=== PATIENT | female | born 1955 | race Two or more races ===

== ENCOUNTER 2020-08-30 08:55 | Outpatient (REF) | payer OTHER, SELFPAY ==
--- NOTE | 2020-08-30 09:22 | XR_ITS ---
EXAMINATION: XR ANKLE, RIGHT CLINICAL INFORMATION: Follow-up fibular fracture. COMPARISON: Radiographs dated 08/12/2020. TECHNIQUE: AP, lateral, and mortise views of the right ankle. FINDINGS: Bone mineralization is normal. The ankle mortise is intact. There is stable alignment of a minimally displaced, oblique distal right fibular fracture. There is a new adjacent periosteal callus formation. No dislocation is seen. There is a right ankle joint effusion. Boehler's angle is normal. There are small posterior and moderate plantar calcaneal spurs. There is mild degenerative change of the dorsal midfoot. There is mild soft tissue swelling adjacent to the lateral malleolus. No soft tissue gas or foreign body is seen. IMPRESSION: There is stable alignment of a mildly displaced oblique distal right fibular fracture. There is new periosteal callus formation.
== END 2020-08-30 08:56 | disposition home or self-care (01) ==
LOC: HO.XRAY 08:55
PROVIDERS: PCP Internal Medicine; Referring Provider Internal Medicine; Visit Provider Orthopaedic Surgery
DX: S82.61XD Displaced fracture of lateral malleolus of right fibula, subsequent encounter for closed fracture with routine healing (principal)
CPT/HCPCS: 73610; 99213

== ENCOUNTER 2020-09-02 09:37 | Outpatient (REF) | payer OTHER, SELFPAY ==
[2020-09-02 10:15] LABS: MANUAL DIFF FLAG NO
[2020-09-02 10:22] LABS: Basophils Percent Auto 0.5 % (0-2); Eosinophils Absolute Auto 0.1 X10*3/uL (0.0-0.4); Eosinophils Percent Auto 2.1 % (0-4); Hematocrit 40.2 % (37-47); Hemoglobin 12.9 g/dl (12.0-16.0); Imm Gran Abs Auto 0.01 X10*3/uL (0.00-0.03); Imm Gran Pct Auto 0.2 % (0.0-0.4); Lymphocytes Absolute Auto 2.1 X10*3/uL (1.2-4.9); Lymphocytes Percent Auto 36.6 % (20-40); Mean Corpuscular HGB Conc 32.1 g/dl (31.0-35.0); Mean Corpuscular Hemoglobin 28.7 pg (27.0-33.0); Mean Corpuscular Volume 89.3 fL (80-98); Monocytes Absolute Auto 0.4 X10*3/uL (0.1-1.2); Monocytes Percent Auto 7.6 % (2-11); Neutrophils Absolute Auto 3.1 X10*3/uL (2.0-8.3); Platelet Count 237 X10*3/uL (160-400); Red Cell Distribution Width 13.6 % (11.0-16.0); White Blood Count 5.8 X10*3/uL (4.8-10.8)
[2020-09-02 11:05] LABS: TSH reflex Free T4 2.34 mIU/mL (0.32-4.0)
== END 2020-09-02 09:38 | disposition home or self-care (01) ==
LOC: HO.LAB 09:37
PROVIDERS: PCP Internal Medicine; Visit Provider Internal Medicine
DX: E66.09 Other obesity due to excess calories (principal)
CPT/HCPCS: 36415; 84443; 85025

== ENCOUNTER 2020-11-12 10:52 | Outpatient (REF) | payer OTHER, SELFPAY | END 2020-11-12 10:53 | disposition home or self-care (01) | LOC: HO.LAB 10:52 | PROVIDERS: Visit Provider Internal Medicine | DX: Z20.828 Contact with and (suspected) exposure to other viral communicable diseases (principal) | CPT/HCPCS: C9803; U0003 ==

== ENCOUNTER 2020-11-26 11:28 | Outpatient (REF) | payer OTHER, SELFPAY | END 2020-11-26 11:29 | disposition home or self-care (01) | LOC: HO.LAB 11:28 | PROVIDERS: PCP Internal Medicine; Visit Provider Internal Medicine | DX: Z20.822 Contact with and (suspected) exposure to COVID-19 (principal) | CPT/HCPCS: 36415; C9803; U0003 ==

== ENCOUNTER 2021-02-20 09:37 | Outpatient (REF) | payer OTHER, SELFPAY ==
--- NOTE | ~2021-02-20 | MM_ITS ---
EXAMINATION: MM SCREENING DIGITAL BREAST TOMOSYNTHESIS, BILATERAL CLINICAL INFORMATION: Screening. Asymptomatic. The lifetime risk of breast cancer based on the Tyrer-Cuzick Model is 4.4%. COMPARISON: Mammography: October 17, 2019 and studies dating back to February 08, 2014 TECHNIQUE: Digital breast tomosynthesis is performed in both the craniocaudal and mediolateral oblique views along with computer-aided detection (CAD). Synthesized 2D images are generated from the tomosynthesis. FINDINGS: The breasts are heterogeneously dense, which may obscure small masses (ACR BI-RADS breast composition Category c). There are no significant masses, abnormal calcifications, or other abnormalities. MM/MM tomosynthesis screening BI IMPRESSION: There are no significant changes from prior study. ASSESSMENT: BI-RADS 1: Negative RECOMMENDATION: Routine annual mammography screening. This patient's information was entered into a reminder system with a target due date for their next mammogram.
== END 2021-02-20 09:38 | disposition home or self-care (01) ==
LOC: HO.MAMMO 09:37
PROVIDERS: Visit Provider Internal Medicine
DX: Z12.31 Encounter for screening mammogram for malignant neoplasm of breast (principal)
CPT/HCPCS: 77063; 77067

== ENCOUNTER 2021-05-27 08:19 | Outpatient (REF) | payer OTHER, SELFPAY ==
[2021-05-27 09:09] LABS: MANUAL DIFF FLAG NO
[2021-05-27 09:13] LABS: Basophils Percent Auto 0.4 % (0-2); Eosinophils Absolute Auto 0.1 X10*3/uL (0.0-0.4); Eosinophils Percent Auto 2.3 % (0-4); Hematocrit 37.6 % (37-47); Hemoglobin 12.3 g/dl (12.0-16.0); Imm Gran Abs Auto 0.01 X10*3/uL (0.00-0.03); Imm Gran Pct Auto 0.2 % (0.0-0.4); Lymphocytes Absolute Auto 2.4 X10*3/uL (1.2-4.9); Lymphocytes Percent Auto 49.6 % (20-40); Mean Corpuscular HGB Conc 32.7 g/dl (31.0-35.0); Mean Corpuscular Hemoglobin 28.9 pg (27.0-33.0); Mean Corpuscular Volume 88.3 fL (80-98); Mean Platelet Volume 12.4 fL (9.4-12.3); Monocytes Absolute Auto 0.4 X10*3/uL (0.1-1.2); Monocytes Percent Auto 7.3 % (2-11); Neutrophils Absolute Auto 1.9 X10*3/uL (2.0-8.3); Neutrophils Percent Auto 40.2 % (45-73); Platelet Count 206 X10*3/uL (160-400); Red Blood Count 4.26 X10*6/uL (4.20-5.50); Red Cell Distribution Width 13.6 % (11.0-16.0); White Blood Count 4.8 X10*3/uL (4.8-10.8)
[2021-05-27 09:33] LABS: Alanine Aminotransferase 70 U/L (0-31); Alkaline Phosphatase 77 U/L (39-117); Anion Gap 13 (12-20); Aspartate Amino Transferase 63 U/L (5-31); Bilirubin Total 0.4 mg/dL (0.0-1.0); Blood Urea Nitrogen 10 mg/dL (9-16); Calcium 9.2 mg/dL (8.4-10.2); Carbon Dioxide 24 mmol/L (22-29); Chloride 104 mmol/L (96-108); Cholesterol 155 mg/dL; Estimated Glomerular Filt Rate > 60; Glucose Fasting 305 mg/dL (60-99); HDL Cholesterol 49 mg/dL; Potassium 4.2 mmol/L (3.3-5.1); Sodium 137 mmol/L (135-145); Total Protein 7.3 g/dL (6.5-8.0)
[2021-05-27 09:34] LABS: LDL Cholesterol Calculated 79 mg/dl; Triglycerides 137 mg/dL
[2021-05-27 10:47] LABS: Creatinine Urine 48.94 mg/dL; Microalbum/Creatinine Ratio Ur 81.7 ug/mg cr
== END 2021-05-27 08:20 | disposition home or self-care (01) ==
LOC: HO.LAB 08:19
PROVIDERS: PCP Internal Medicine; Visit Provider Internal Medicine
DX: E11.65 Type 2 diabetes mellitus with hyperglycemia (principal); D64.9 Anemia, unspecified; K21.9 Gastro-esophageal reflux disease without esophagitis; E78.5 Hyperlipidemia, unspecified
CPT/HCPCS: 36415; 80053; 80061; 82043; 85025

== ENCOUNTER 2021-12-10 08:59 | Outpatient (REF) | payer OTHER, SELFPAY ==
[2021-12-10 11:04] LABS: Alanine Aminotransferase 75 U/L (0-31); Albumin Level 3.9 g/dL (3.5-5.0); Alkaline Phosphatase 83 U/L (39-117); Anion Gap 12 (12-20); Aspartate Amino Transferase 67 U/L (5-31); Bilirubin Total 0.4 mg/dL (0.0-1.0); Blood Urea Nitrogen 17 mg/dL (9-16); Calcium 9.3 mg/dL (8.4-10.2); Carbon Dioxide 24 mmol/L (22-29); Chloride 107 mmol/L (96-108); Cholesterol 153 mg/dL; Estimated Glomerular Filt Rate > 60; Glucose Fasting 139 mg/dL (60-99); HDL Cholesterol 47 mg/dL; LDL Cholesterol Calculated 86 mg/dl; Potassium 4.3 mmol/L (3.3-5.1); Sodium 139 mmol/L (135-145); Total Protein 7.4 g/dL (6.5-8.0); Triglycerides 104 mg/dL
[2021-12-10 11:28] LABS: Creatinine Urine 78.41 mg/dL; Microalbum/Creatinine Ratio Ur 29.3 ug/mg cr
[2021-12-15 16:17] LABS: Vitamin D 25-OH, D2 <4 ng/mL; Vitamin D 25-OH, D3 25 ng/mL; Vitamin D 25-OH, Total 25 ng/mL (30-100)
== END 2021-12-10 09:00 | disposition home or self-care (01) ==
LOC: HO.LAB 08:59
PROVIDERS: PCP Internal Medicine; Visit Provider Internal Medicine
DX: E11.65 Type 2 diabetes mellitus with hyperglycemia (principal); E78.5 Hyperlipidemia, unspecified; E55.9 Vitamin D deficiency, unspecified
CPT/HCPCS: 36415; 80053; 80061; 82043; 82306

== ENCOUNTER 2022-02-26 09:45 | Outpatient (REF) | payer OTHER, SELFPAY ==
--- NOTE | ~2022-02-26 | MM_ITS ---
EXAMINATION: MM SCREENING DIGITAL BREAST TOMOSYNTHESIS, BILATERAL CLINICAL INFORMATION: Screening. Asymptomatic. The lifetime risk of breast cancer based on the Tyrer-Cuzick Model is 4.5%. COMPARISON: Mammography: February 20, 2021 and studies dating back to August 26, 2010 TECHNIQUE: Digital breast tomosynthesis is performed in both the craniocaudal and mediolateral oblique views along with computer-aided detection (CAD). Synthesized 2D images are generated from the tomosynthesis. FINDINGS: The breasts are heterogeneously dense, which may obscure small masses (ACR BI-RADS breast composition Category c). There are no significant masses, abnormal calcifications, or other abnormalities. Right breast intramammary lymph nodes present. MM/MM tomosynthesis screening BI IMPRESSION: There are no significant changes from prior study. ASSESSMENT: BI-RADS 1: Negative RECOMMENDATION: Routine annual mammography screening. This patient's information was entered into a reminder system with a target due date for their next mammogram.
== END 2022-02-26 09:46 | disposition home or self-care (01) ==
LOC: HO.MAMMO 09:45
PROVIDERS: PCP Internal Medicine; Visit Provider Internal Medicine
DX: Z12.31 Encounter for screening mammogram for malignant neoplasm of breast (principal)
CPT/HCPCS: 77063; 77067

== ENCOUNTER 2022-06-05 07:31 | Outpatient (REF) | payer MEDICARE, MEDICAID, SELFPAY ==
[2022-06-05 07:59] LABS: MANUAL DIFF FLAG NO
[2022-06-05 08:14] LABS: Basophils Percent Auto 0.4 % (0-2); Eosinophils Absolute Auto 0.1 X10*3/uL (0.0-0.4); Eosinophils Percent Auto 2.1 % (0-4); Hematocrit 38.5 % (37.0-47.0); Hemoglobin 12.4 g/dl (12.0-16.0); Imm Gran Abs Auto 0.02 X10*3/uL (0.00-0.03); Imm Gran Pct Auto 0.4 % (0.0-0.4); Lymphocytes Absolute Auto 2.6 X10*3/uL (1.2-4.9); Lymphocytes Percent Auto 48.9 % (20-40); Mean Corpuscular HGB Conc 32.2 g/dl (31.0-35.0); Mean Corpuscular Hemoglobin 28.1 pg (27.0-33.0); Mean Corpuscular Volume 87.3 fL (80.0-98.0); Mean Platelet Volume 11.6 fL (9.4-12.3); Monocytes Absolute Auto 0.4 X10*3/uL (0.1-1.2); Monocytes Percent Auto 6.8 % (2-11); Neutrophils Absolute Auto 2.2 x10*3/uL (2.0-8.3); Neutrophils Percent Auto 41.4 % (45-73); Platelet Count 250 X10*3/uL (160-400); Red Blood Count 4.41 X10*6/uL (4.20-5.50); Red Cell Distribution Width 13.2 % (11.0-16.0); White Blood Count 5.3 X10*3/uL (4.8-10.8)
[2022-06-05 08:53] LABS: Alanine Aminotransferase 61 U/L (0-31); Albumin Level 4.1 g/dL (3.5-5.0); Alkaline Phosphatase 72 U/L (39-117); Anion Gap 12 (12-20); Aspartate Amino Transferase 62 U/L (5-31); Bilirubin Total 0.5 mg/dL (0.0-1.0); Blood Urea Nitrogen 14 mg/dL (9-16); Calcium 9.2 mg/dL (8.4-10.2); Carbon Dioxide 23 mmol/L (22-29); Chloride 108 mmol/L (96-108); Cholesterol 139 mg/dL; Estimated Glomerular Filt Rate > 60; Glucose Fasting 162 mg/dL (60-99); HDL Cholesterol 43 mg/dL; LDL Cholesterol Calculated 75 mg/dl; Sodium 139 mmol/L (135-145); Total Protein 7.5 g/dL (6.5-8.0); Triglycerides 105 mg/dL
[2022-06-05 09:14] LABS: Vitamin D 25-OH Total 34.6 ng/mL (>30)
[2022-06-05 09:59] LABS: Creatinine Urine 75.82 mg/dL; Microalbum/Creatinine Ratio Ur 73.8 ug/mg cr
== END 2022-06-05 07:32 | disposition home or self-care (01) ==
LOC: HO.LAB 07:31
PROVIDERS: PCP Internal Medicine; Visit Provider Internal Medicine
DX: E11.65 Type 2 diabetes mellitus with hyperglycemia (principal); E78.5 Hyperlipidemia, unspecified; E55.9 Vitamin D deficiency, unspecified; K21.9 Gastro-esophageal reflux disease without esophagitis
CPT/HCPCS: 36415; 80053; 80061; 82043; 82306; 85025

== ENCOUNTER 2022-06-25 09:31 | Outpatient (REF) | payer OTHER, SELFPAY ==
--- NOTE | ~2022-06-25 | XR_ITS ---
EXAMINATION: XR FOOT, LEFT CLINICAL INFORMATION: Pain COMPARISON: None TECHNIQUE: AP, lateral, and oblique views of the left foot. FINDINGS: The bones and soft tissues are normal. No fracture. Alignment is anatomic. Joint spaces are maintained. There is a small calcaneal heel enthesophyte. XR/XR foot LT 2V IMPRESSION: Small calcaneal heel enthesophyte. Otherwise unremarkable left foot exam
== END 2022-06-25 09:32 | disposition home or self-care (01) ==
LOC: HO.XRAY 09:31
PROVIDERS: PCP Internal Medicine; Visit Provider Internal Medicine
DX: M79.672 Pain in left foot (principal)
CPT/HCPCS: 73620

== ENCOUNTER 2022-10-09 07:59 | Outpatient (REF) | payer OTHER, SELFPAY ==
[2022-10-09 09:01] LABS: Creatinine Urine 134.94 mg/dL; Microalbum/Creatinine Ratio Ur 22.2 ug/mg cr
[2022-10-09 11:30] LABS: Alanine Aminotransferase 66 U/L (0-31); Albumin Level 4.1 g/dL (3.5-5.0); Alkaline Phosphatase 77 U/L (39-117); Anion Gap 13 (12-20); Aspartate Amino Transferase 65 U/L (5-31); Bilirubin Total 0.5 mg/dL (0.0-1.0); Blood Urea Nitrogen 14 mg/dL (9-16); Calcium 9.4 mg/dL (8.4-10.2); Carbon Dioxide 24 mmol/L (22-29); Chloride 109 mmol/L (96-108); Cholesterol 136 mg/dL; Estimated Glomerular Filt Rate > 60; Glucose Fasting 86 mg/dL (60-99); HDL Cholesterol 40 mg/dL; LDL Cholesterol Calculated 72 mg/dl; Sodium 142 mmol/L (135-145); Total Protein 7.7 g/dL (6.5-8.0); Triglycerides 122 mg/dL; Vitamin D 25-OH Total 44.6 ng/mL (>30)
== END 2022-10-09 08:00 | disposition home or self-care (01) ==
LOC: HO.LAB 07:59
PROVIDERS: PCP Internal Medicine; Visit Provider Internal Medicine
DX: E11.65 Type 2 diabetes mellitus with hyperglycemia (principal); E78.5 Hyperlipidemia, unspecified; E55.9 Vitamin D deficiency, unspecified
CPT/HCPCS: 36415; 80053; 80061; 82043; 82306

== ENCOUNTER 2023-03-11 08:09 | Outpatient (REF) | payer OTHER, SELFPAY ==
--- NOTE | ~2023-03-11 | MM_ITS ---
EXAMINATION: MM SCREENING DIGITAL BREAST TOMOSYNTHESIS, BILATERAL CLINICAL INFORMATION: Screening. Asymptomatic. The lifetime risk of breast cancer based on the Tyrer-Cuzick Model is 4.3%. COMPARISON: Mammography: February 26, 2022 and studies dating back to July 17, 2016 TECHNIQUE: Digital breast tomosynthesis is performed in both the craniocaudal and mediolateral oblique views along with computer-aided detection (CAD). Synthesized 2D images are generated from the tomosynthesis. FINDINGS: There are scattered areas of fibroglandular density (ACR BI-RADS breast composition Category b). There are no significant masses, abnormal calcifications, or other abnormalities. MM/MM tomosynthesis screening BI IMPRESSION: No significant change in ASSESSMENT: BI-RADS 1: Negative RECOMMENDATION: Routine annual mammography screening. This patient's information was entered into a reminder system with a target due date for their next mammogram.
== END 2023-03-11 08:10 | disposition home or self-care (01) ==
LOC: HO.MAMMO 08:09
PROVIDERS: PCP Internal Medicine; Visit Provider Internal Medicine
DX: Z12.31 Encounter for screening mammogram for malignant neoplasm of breast (principal)
CPT/HCPCS: 77063; 77067

== ENCOUNTER 2023-03-30 07:20 | Outpatient (REF) | payer OTHER, SELFPAY ==
[2023-03-30 07:37] LABS: MANUAL DIFF FLAG NO
[2023-03-30 08:04] LABS: Basophils Percent Auto 0.5 % (0-2); Eosinophils Absolute Auto 0.1 X10*3/uL (0.0-0.4); Eosinophils Percent Auto 1.6 % (0-4); Hematocrit 36.2 % (37.0-47.0); Hemoglobin 11.8 g/dl (12.0-16.0); Imm Gran Abs Auto 0.02 X10*3/uL (0.00-0.03); Imm Gran Pct Auto 0.3 % (0.0-0.4); Lymphocytes Absolute Auto 2.9 X10*3/uL (1.2-4.9); Mean Corpuscular HGB Conc 32.6 g/dl (31.0-35.0); Mean Corpuscular Hemoglobin 29.6 pg (27.0-33.0); Mean Corpuscular Volume 90.7 fL (80.0-98.0); Mean Platelet Volume 11.5 fL (9.4-12.3); Monocytes Absolute Auto 0.5 X10*3/uL (0.1-1.2); Monocytes Percent Auto 7.8 % (2-11); Neutrophils Absolute Auto 2.6 x10*3/uL (2.0-8.3); Neutrophils Percent Auto 41.8 % (45-73); Platelet Count 221 X10*3/uL (160-400); Red Blood Count 3.99 X10*6/uL (4.20-5.50); Red Cell Distribution Width 13.3 % (11.0-16.0); White Blood Count 6.1 X10*3/uL (4.8-10.8)
[2023-03-30 11:21] LABS: Creatinine Urine 43.52 mg/dL; Microalbum/Creatinine Ratio Ur 18.3 ug/mg cr
[2023-03-30 12:32] LABS: Alanine Aminotransferase 31 U/L (0-31); Albumin Level 3.8 g/dL (3.5-5.0); Alkaline Phosphatase 56 U/L (39-117); Anion Gap 13 (12-20); Aspartate Amino Transferase 31 U/L (5-31); Bilirubin Total 0.4 mg/dL (0.0-1.0); Blood Urea Nitrogen 13 mg/dL (9-16); Calcium 9.2 mg/dL (8.4-10.2); Carbon Dioxide 24 mmol/L (22-29); Chloride 111 mmol/L (96-108); Cholesterol 134 mg/dL; Estimated Glomerular Filt Rate > 60; Glucose Fasting 99 mg/dL (60-99); HDL Cholesterol 46 mg/dL; LDL Cholesterol Calculated 72 mg/dl; Potassium 4.5 mmol/L (3.3-5.1); Sodium 143 mmol/L (135-145); Triglycerides 83 mg/dL
[2023-03-30 12:50] LABS: Vitamin D 25-OH Total 37.6 ng/mL (>30)
== END 2023-03-30 07:21 | disposition home or self-care (01) ==
LOC: HO.LAB 07:20
PROVIDERS: PCP Internal Medicine; Visit Provider Internal Medicine
DX: E55.9 Vitamin D deficiency, unspecified (principal); E78.5 Hyperlipidemia, unspecified; K21.9 Gastro-esophageal reflux disease without esophagitis; E11.65 Type 2 diabetes mellitus with hyperglycemia
CPT/HCPCS: 36415; 80053; 80061; 82043; 82306; 85025

== ENCOUNTER 2023-08-09 08:24 | Outpatient (REF) | payer OTHER, SELFPAY ==
[2023-08-09 08:37] LABS: MANUAL DIFF FLAG NO
[2023-08-09 08:51] LABS: Basophils Percent Auto 0.5 % (0-2); Eosinophils Absolute Auto 0.1 X10*3/uL (0.0-0.4); Eosinophils Percent Auto 2.3 % (0-4); Hematocrit 34.4 % (37.0-47.0); Hemoglobin 11.6 g/dl (12.0-16.0); Imm Gran Abs Auto 0.02 X10*3/uL (0.00-0.03); Imm Gran Pct Auto 0.3 % (0.0-0.4); Lymphocytes Absolute Auto 2.6 X10*3/uL (1.2-4.9); Lymphocytes Percent Auto 45.1 % (20-40); Mean Corpuscular HGB Conc 33.7 g/dl (31.0-35.0); Mean Corpuscular Hemoglobin 29.2 pg (27.0-33.0); Mean Corpuscular Volume 86.6 fL (80.0-98.0); Mean Platelet Volume 11.4 fL (9.4-12.3); Monocytes Absolute Auto 0.4 X10*3/uL (0.1-1.2); Monocytes Percent Auto 7.2 % (2-11); Neutrophils Absolute Auto 2.6 x10*3/uL (2.0-8.3); Neutrophils Percent Auto 44.6 % (45-73); Platelet Count 229 X10*3/uL (160-400); Red Blood Count 3.97 X10*6/uL (4.20-5.50); White Blood Count 5.7 X10*3/uL (4.8-10.8)
[2023-08-09 09:34] LABS: Alanine Aminotransferase 31 U/L (0-31); Albumin Level 4.1 g/dL (3.5-5.0); Alkaline Phosphatase 59 U/L (39-117); Anion Gap 11 (12-20); Aspartate Amino Transferase 30 U/L (5-31); Bilirubin Total 0.3 mg/dL (0.0-1.0); Blood Urea Nitrogen 11 mg/dL (9-16); Calcium 9.6 mg/dL (8.4-10.2); Carbon Dioxide 24 mmol/L (22-29); Chloride 111 mmol/L (96-108); Cholesterol 133 mg/dL (<200); Estimated Glomerular Filt Rate > 60; Glucose Fasting 89 mg/dL (60-99); HDL Cholesterol 45 mg/dL (>40); Iron 59 mcg/dL (30-160); LDL Cholesterol Calculated 69 mg/dL (<100); Percent Iron Saturation 19 % (15-50); Potassium 3.8 mmol/L (3.3-5.1); Sodium 142 mmol/L (135-145); Total Iron Binding Capacity 306 mcg/dL (228-428); Total Protein 7.5 g/dL (6.5-8.0); Triglycerides 99 mg/dL (<150); Unsaturated Iron Binding 247 ug/dL
[2023-08-09 09:41] LABS: Vitamin D 25-OH Total 44.4 ng/mL (>30)
[2023-08-09 09:54] LABS: Creatinine Urine 83.97 mg/dL; Microalbum/Creatinine Ratio Ur 16.6 ug/mg cr (<30)
[2023-08-09 09:56] LABS: Folate 15.9 ng/mL (> or = 4.0); Vitamin B12 790 pg/mL (200-900)
== END 2023-08-09 08:25 | disposition home or self-care (01) ==
LOC: HO.LAB 08:24
PROVIDERS: PCP Internal Medicine; Visit Provider Internal Medicine
DX: D64.9 Anemia, unspecified (principal); E53.8 Deficiency of other specified B group vitamins; E78.5 Hyperlipidemia, unspecified; E55.9 Vitamin D deficiency, unspecified; E11.9 Type 2 diabetes mellitus without complications; I10 Essential (primary) hypertension
CPT/HCPCS: 36415; 80053; 80061; 82043; 82306; 82570; 82607; 82746; 83540; 85025

== ENCOUNTER 2023-08-17 12:43 | Outpatient (AMB) | payer OTHER, SELFPAY ==
--- NOTE | 2023-08-17 12:47 | MHC.PC.OV ---
Vital Signs 08/17/23 12:50 Height 5 ft 3 in Weight 184 lb BMI 32.6 BP 122/70 Blood Pressure Location Lt brachial Position Sitting Intake Visit Reasons: dm Advertising Traffic Manager Required: No Accompanied by: Spouse Allergies dulaglutide [Trulicity] Adverse Reaction (Intermediate, Verified 08/17/23 12:56) abdominal gas Ozempic Allergy (Intermediate, Uncoded 04/13/23 13:22) hives dogs Allergy (Mild, Uncoded 04/13/23 13:22) rash Medication List - Last Reconciled 08/17/23 by Bharati Veliz MD atorvastatin 20 mg PO BEDTIME 90 days blood sugar diagnostic (FreeStyle Lite Strips) USE TO TEST ONCE DAILY blood-glucose meter (FreeStyle Lite Meter kit) As directed cholecalciferol (vitamin D3) 25 mcg PO DAILY 90 days insulin glargine (Lantus Solostar U-100 Insulin) 32 units (0.32 mL) subcut DAILY 90 days lancets (FreeStyle Lancets) Use 1 lancet once a day lisinopril 10 mg PO DAILY 90 days metformin 1,000 mg PO BID 90 days omeprazole 20 mg PO DAILY 90 days pen needle, diabetic (BD Lynn 2nd Gen Pen Needle) USE 1 PEN NEEDLE ONCE A DAY pen needle, diabetic As directed pioglitazone 45 mg PO DAILY Tobacco use date assessed: 12/09/22 HPI HPI Comments History of Present Illness Details This is a 68-year-old female with diabetes mellitus type, hypertension, dyslipidemia and GERD that comes today accompanied by partner for follow-up on her conditions. A1c close to goal. Blood pressure stable. LDL within goal. GERD stable with medications. She denies any chest pain or shortness of breath. Compliant with medications. [facility] Medical History Essential hypertension Dyslipidemia Diabetes mellitus Closed fibular fracture GERD (gastroesophageal reflux disease) Surgical History History of back surgery Family History Father No problems noted. Mother Diabetes Son Diabetes Maternal Uncle Diabetes Maternal Aunt Diabetes Brother No problems noted. Brother No problems noted. Sister Substance use disorder Sister No problems noted. Son No problems noted. Son No problems noted. Daughter No problems noted. Daughter No problems noted. Social History Housing: House Alcohol intake: never Patient Tobacco Use Status: Never used Tobacco e-Cigarette/Vaping Use: Never Used Second Hand Smoke Exposure: No service: No Current occupational status: unemployed Cognitive needs: No Hearing needs: No Vision needs: No Questionnaire Thrive Questionnaire Date Thrive assessed: 12/09/22 FREDDY-7 AMB Questionnaire FREDDY-7 Date FREDDY - 7 assessed: 12/09/22 Source: Developed by Drs. Santo Sims, Yina Marina, Russell Culver and colleagues, with an educational noah from [employer]. Review of Systems Const All systems reviewed & are unremarkable except as noted in HPI and below Eyes Reports no additional complaints, Denies change in vision and Denies other visual disturbances Card Denies chest pain at rest, Denies chest pain with activity, Denies edema, Denies irregular heart rhythm, Denies claudication, Denies dyspnea, Denies dyspnea on exertion, Denies orthopnea, Denies paroxysmal nocturnal dyspnea and Denies slow heart rate Resp Denies cough, Denies dyspnea and Denies dyspnea on exertion GI Denies abdominal pain, Denies change in bowel habits, Denies excessive flatus, Denies nausea and Denies vomiting Denies urinary incontinence, Denies urinary hesitancy and Denies urinary urgency Musc Denies abnormal gait, Denies atrophy, Denies deformity and Denies limited range of motion Skin/Breast Denies bleeding lesions, Denies changing lesions and Denies rash Neuro Denies abnormal gait and Denies lack of coordination Physical exam (Primary Care) Vital Signs: Last Vital Signs BP 122/70 08/17/23 12:50 BMI result Body Mass Index 32.6 Tobacco/Smoking Status: Tobacco use Status Tobacco use date assessed 12/09/22 08/17/23 12:47 Patient Tobacco Use Status Never used Tobacco 08/17/23 12:47 e-Cigarette/Vaping Use Never Used 08/17/23 12:47 Thrive Assessment: Date of Thrive Assessment Date Thrive assessed 12/09/22 08/17/23 12:47 Eyes General: appearance normal, both eyes and all related structures Eyelids: Yes eyelids normal Conjunctivae: conjunctivae normal Neck Neck: Yes normal visual inspection and Yes supple Resp Effort & Inspection: normal respiratory effort Auscultation: clear to auscultation bilaterally Cardio Jugular venous distension: no JVD Rate: regular rate Rhythm: regular rhythm Heart sounds: S1 normal heart sound present and S2 normal heart sound present Skin General skin exam: no rashes or lesions noted Extrem General: Yes full ROM Results AMB Hemoglobin A1c AMB Hemoglobin A1c 7.7 % Last Edit by NORY Dhaliwal on 08/17/23 12:59 Results Reviewed Results Reviewed: Laboratory Last Values Hgb A1c (Clinic) 7.7 % (4.0-6.0) H 08/17/23 12:47 Assessment and Plan Assessment & Plan (1) Essential hypertension: Code(s): I10 - Essential (primary) hypertension Plan: Continue lisinopril. Blood pressure goal is equal or less than 130/80. (2) Diabetes mellitus: Code(s): E11.9 - Type 2 diabetes mellitus without complications Qualifiers: Diabetes mellitus type: type 2 Diabetes mellitus mcc insulin use: without local intermodal truck driver use Diabetes mellitus complication status: with hyperglycemia Qualified Code(s): E11.65 - Type 2 diabetes mellitus with hyperglycemia Plan: Continue metformin and insulin. A1c goal is equal or less than 7%. (3) Dyslipidemia: Code(s): E78.5 - Hyperlipidemia, unspecified Plan: Continue statins. LDL goal is less than 70. (4) GERD (gastroesophageal reflux disease): Code(s): K21.9 - Gastro-esophageal reflux disease without esophagitis Qualifiers: Esophagitis presence: esophagitis presence not specified Qualified Code(s): K21.9 - Gastro-esophageal reflux disease without esophagitis Plan: Continue PPIs as needed. Orders: Orders Lipid Panel 4 Months E78.5 - Hyperlipidemia, unspecified Vitamin D 25-OH Total 4 Months E55.9 - Vitamin D deficiency, unspecified AMB Hemoglobin A1c Today E11.9 - Type 2 diabetes mellitus without complications Microalbumin, Random (w Creat) 4 Months E11.9 - Type 2 diabetes mellitus without complications Comprehensive [place]. Panel Fast 4 Months E11.65 - Type 2 diabetes mellitus with hyperglycemia Medications: Refilled blood sugar diagnostic (FreeStyle Lite Strips) USE TO TEST ONCE DAILY 100 strips 1RF E11.65 - Type 2 diabetes mellitus with hyperglycemia Coding Level of Care Code Est Pt Level 4 (30678) Diagnoses Essential hypertension I10 Type 2 diabetes mellitus with hyperglycemia, without long-term current use of insulin E11.65 Diabetes mellitus type: type 2 Diabetes mellitus mcc insulin use: without local intermodal truck driver use Diabetes mellitus complication status: with hyperglycemia Dyslipidemia E78.5 Gastroesophageal reflux disease, unspecified whether esophagitis present K21.9 Esophagitis presence: esophagitis presence not specified Time Spent (min) 23
[2023-08-17 12:50] VITALS: BP 122/70; BMI 32.6
== END 2023-08-17 13:10 | disposition home or self-care (01) ==
PROVIDERS: Visit Provider Internal Medicine
DX: I10 Essential (primary) hypertension (principal); E11.65 Type 2 diabetes mellitus with hyperglycemia; E78.5 Hyperlipidemia, unspecified; K21.9 Gastro-esophageal reflux disease without esophagitis; E11.9 Type 2 diabetes mellitus without complications
CPT/HCPCS: 83036; 99214

== ENCOUNTER 2023-12-13 07:42 | Outpatient (REF) | payer OTHER, SELFPAY ==
[2023-12-13 09:15] LABS: Alanine Aminotransferase 37 U/L (0-31); Albumin Level 4.2 g/dL (3.5-5.0); Alkaline Phosphatase 67 U/L (39-117); Anion Gap 10 (12-20); Aspartate Amino Transferase 39 U/L (5-31); Bilirubin Total 0.4 mg/dL (0.0-1.0); Blood Urea Nitrogen 12 mg/dL (9-16); Calcium 9.6 mg/dL (8.4-10.2); Carbon Dioxide 29 mmol/L (22-29); Chloride 107 mmol/L (96-108); Cholesterol 144 mg/dL (<200); Estimated Glomerular Filt Rate > 60; Glucose Fasting 84 mg/dL (60-99); HDL Cholesterol 44 mg/dL (>40); LDL Cholesterol Calculated 77 mg/dL (<100); Potassium 3.8 mmol/L (3.3-5.1); Sodium 142 mmol/L (135-145); Triglycerides 117 mg/dL (<150)
[2023-12-13 10:49] LABS: Creatinine Urine 51.12 mg/dL; Microalbum/Creatinine Ratio Ur 13.6 ug/mg cr (<30)
== END 2023-12-13 07:43 | disposition home or self-care (01) ==
LOC: HO.LAB 07:42
PROVIDERS: PCP Internal Medicine; Visit Provider Internal Medicine
DX: E11.65 Type 2 diabetes mellitus with hyperglycemia (principal); E55.9 Vitamin D deficiency, unspecified; E78.5 Hyperlipidemia, unspecified
CPT/HCPCS: 36415; 80053; 80061; 82043; 82306; 82570

== ENCOUNTER 2023-12-21 13:33 | Outpatient (AMB) | payer OTHER, SELFPAY ==
--- NOTE | 2023-12-21 13:42 | A.OFFPC_ITS ---
Vital Signs 12/21/23 13:47 Height 5 ft 3 in Weight 187 lb BMI 33.1 BP 136/80 Blood Pressure Location Lt brachial Position Sitting Intake Visit Reasons: dm Intake Note: Patient here for a follow up DM Hazmat Cdl A Driver Required: No Accompanied by: Significant Other Allergies dulaglutide [Trulicity] Adverse Reaction (Intermediate, Verified 12/21/23 13:52) abdominal gas Ozempic Allergy (Intermediate, Uncoded 12/21/23 13:52) hives dogs Allergy (Mild, Uncoded 12/21/23 13:52) rash Medication List - Last Reconciled 12/21/23 by Bharati Veliz MD atorvastatin 20 mg PO BEDTIME 90 days blood sugar diagnostic (FreeStyle Lite Strips) USE TO TEST ONCE DAILY blood-glucose meter (FreeStyle Lite Meter kit) As directed cholecalciferol (vitamin D3) 25 mcg PO DAILY 90 days insulin glargine (Lantus Solostar U-100 Insulin) 32 units (0.32 mL) subcut DAILY 90 days lancets (FreeStyle Lancets) Use 1 lancet once a day lisinopril 10 mg PO DAILY 90 days metformin 1,000 mg PO BID 90 days omeprazole 20 mg PO DAILY 90 days pen needle, diabetic (BD Lynn 2nd Gen Pen Needle) USE 1 PEN NEEDLE ONCE A DAY pen needle, diabetic As directed pioglitazone 45 mg PO DAILY Tobacco use date assessed: 12/21/23 Fall risk assessment: No Falls in past year Last assessed Fall Risk: 12/21/23 Dental Screening Dental Screen Date: 12/21/23 Did you have a dental visit in the last 12 months?: Yes Did you have a dental problem in the last 6 months where you did not have access to dental care?: No Was dental information given to patient?: Patient has dentist HPI HPI Comments History of Present Illness Details This is a 68-year-old female with diabetes mellitus type 2, hypertension, hyperlipidemia and GERD that comes today accompanied by boyfriend for follow-up on her conditions. A1c elevated and I will increase insulin. Blood pressure stable. LDL close to goal. GERD stable with medications. Denies any chest pain or shortness of breath. Has diabetic eye exam in January 2024. [facility] Medical History Essential hypertension Dyslipidemia Diabetes mellitus Closed fibular fracture GERD (gastroesophageal reflux disease) Surgical History History of back surgery Family History Father No problems noted. Mother Diabetes Son Diabetes Maternal Uncle Diabetes Maternal Aunt Diabetes Brother No problems noted. Brother No problems noted. Sister Substance use disorder Sister No problems noted. Son No problems noted. Son No problems noted. Daughter No problems noted. Daughter No problems noted. Social History Housing: House Alcohol intake: never Patient Tobacco Use Status: Never used Tobacco e-Cigarette/Vaping Use: Never Used Second Hand Smoke Exposure: No service: No Current occupational status: unemployed Cognitive needs: No Hearing needs: No Vision needs: No Questionnaire PHQ-9 Over the last 2 weeks, how often have you been bothered by any of the following problems? 1. Little interest or pleasure in doing things: several days 2. Feeling down, depressed, or hopeless: several days 3. Trouble falling or staying asleep, or sleeping too much: several days 4. Feeling tired or having little energy: several days 5. Poor appetite or overeating: not at all 6. Feeling bad about yourself - or that you are a failure or have let yourself or your family down: not at all 7. Trouble concentrating on things, such as reading the newspaper or watching television: not at all 8. Moving or speaking so slowly that other people could have noticed. Or the opposite - being so fidgety or restless that you have been moving around a lot more than usual: not at all 9. Thoughts that you would be better off or of hurting yourself in some way: not at all Total score: 4 Depression Screening Interpretation: Negative Depression Screening Done: Yes 21622 - PHQ-9 Billing: Yes Source: Developed by Drs. Santo Sims, Yina Marina, Russell Culver and colleagues, with an educational noah from [employer]. Thrive Questionnaire Date Thrive assessed: 12/21/23 I am a: Patient What is your living situation today?: I have a steady place to live Within the past 12 months, did the food you bought not last and you didn't have the money to get more?: Never true Within the past 12 months, did you worry whether your food would run out before you got money to buy more?: Never true Do you have trouble paying for medicines?: No Do you have trouble getting transportation to medical appointments?: No Do you have trouble paying your heating and electricity bill?: No Do you have trouble taking care of your child, family member or friend?: No Do you have trouble with day-to-day activities such as bathing, preparing meals, shopping, managing finances, etc.?: No Are you currently unemployed and looking for a job?: No Are you interested in more education?: No Please select the resources that you would like help with: None Currently or been in a relationship where the following occur: no concerns reported THRIVE Score: 0 AUDIT C Alcohol Use Questionnaire (AUDIT-C) 1. How often do you have a drink containing alcohol?: Never Total Score: 0 FREDDY-7 AMB Questionnaire FREDDY-7 Date FREDDY - 7 assessed: 12/21/23 Feeling nervous, anxious, or on edge: 1 = Several days Not being able to stop or control worryin = Not at all Worrying too much about different things: 1 = Several days Trouble relaxin = Several days Being so restless that it is hard to sit still: 0 = Not at all Becoming easily annoyed or irritable: 0 = Not at all Feeling afraid as if something awful might happen: 0 = Not at all Total FREDDY-7 score (0-4 normal; 5-9 mild; 10-14 moderate; 15-21 severe): 3 Source: Developed by Drs. Santo Sims, Yina Marina, Russell Culver and colleagues, with an educational noah from [employer]. FREDDY-7 Assessment Billing FREDDY-7 Assessment Tool: FREDDY-7 Assessment 46133 Review of Systems Const All systems reviewed & are unremarkable except as noted in HPI and below Eyes Reports no additional complaints, Denies change in vision and Denies other visual disturbances Card Denies chest pain at rest, Denies chest pain with activity, Denies edema, Denies irregular heart rhythm, Denies claudication, Denies dyspnea, Denies dyspnea on exertion, Denies orthopnea, Denies paroxysmal nocturnal dyspnea and Denies slow heart rate Resp Denies cough, Denies dyspnea and Denies dyspnea on exertion GI Denies abdominal pain, Denies change in bowel habits, Denies excessive flatus, Denies nausea and Denies vomiting Denies urinary incontinence, Denies urinary hesitancy and Denies urinary urgency Musc Denies abnormal gait, Denies atrophy, Denies deformity and Denies limited range of motion Skin/Breast Denies bleeding lesions, Denies changing lesions and Denies rash Neuro Denies abnormal gait, Denies behavioral changes and Denies lack of coordination Psych Denies behavioral changes Physical exam (Primary Care) Vital Signs: Last Vital Signs BP 136/80 12/21/23 13:47 BMI result Body Mass Index 33.1 Tobacco/Smoking Status: Tobacco use Status Tobacco use date assessed 12/21/23 12/21/23 13:49 Patient Tobacco Use Status Never used Tobacco 12/21/23 13:45 e-Cigarette/Vaping Use Never Used 12/21/23 13:45 PHQ-9: PHQ-9 Score PHQ-9: Total score 4 12/21/23 13:54 Depression Screening Interpretation: Negative Thrive Assessment: Date of Thrive Assessment Date Thrive assessed 12/21/23 12/21/23 13:49 Currently or been in a relationship where the following occur: no concerns reported Eyes General: appearance normal, both eyes and all related structures Eyelids: Yes eyelids normal Conjunctivae: conjunctivae normal Neck Neck: Yes normal visual inspection and Yes supple Resp Effort & Inspection: normal respiratory effort Auscultation: clear to auscultation bilaterally Cardio Jugular venous distension: no JVD Rate: regular rate Rhythm: regular rhythm Heart sounds: S1 normal heart sound present and S2 normal heart sound present Extrem General: Yes full ROM Office Procedures Flu Questionnaire Does the patient have a severe egg allergy?: No Results AMB Hemoglobin A1c AMB Hemoglobin A1c 8.0 % Last Edit by NORY Dhaliwal on 12/21/23 13:5 5 Immunizations flu vacc [id number] 6mos up(PF) 60 mcg(15 mcgx4)/0.5 mL IM syringe Performing Provider: Bharati Veliz MD [facility] Documented (not given) by: NORY Dhaliwal on 12/21/23 13:55 Reason Not Given: Patient Refused Results Reviewed Results Reviewed: Laboratory Last Values Hgb A1c (Clinic) 8.0 % (4.0-6.0) H 12/21/23 13:54 Assessment and Plan Assessment & Plan (1) Diabetes mellitus: Code(s): E11.9 - Type 2 diabetes mellitus without complications Qualifiers: Diabetes mellitus type: type 2 Diabetes mellitus fci insulin use: without fci use Diabetes mellitus complication status: with hyperglycemia Qualified Code(s): E11.65 - Type 2 diabetes mellitus with hyperglycemia Plan: Continue metformin and Actos. Increase insulin. A1c goal is equal or less than 7%. (2) Essential hypertension: Code(s): I10 - Essential (primary) hypertension Plan: Continue lisinopril. Blood pressure goal is equal or less than 130/80. (3) Dyslipidemia: Code(s): E78.5 - Hyperlipidemia, unspecified Plan: Continue statins. LDL goal is less than 70. (4) GERD (gastroesophageal reflux disease): Code(s): K21.9 - Gastro-esophageal reflux disease without esophagitis Qualifiers: Esophagitis presence: esophagitis presence not specified Qualified C ode(s): K21.9 - Gastro-esophageal reflux disease without esophagitis Plan: Continue PPIs. Orders: Orders AMB Hemoglobin A1c Today E11.9 - Type 2 diabetes mellitus without complications Influenza [id number] Immunization Today Z23 - Encounter for immunization Microalbumin, Random (w Creat) 5 Months E11.9 - Type 2 diabetes mellitus without complications Lipid Panel 5 Months E78.5 - Hyperlipidemia, unspecified Comprehensive [place]. Panel Fast 5 Months E11.65 - Type 2 diabetes mellitus with hyperglycemia Medications: Changed From insulin glargine (Lantus Solostar U-100 Insulin) 32 units (0.32 mL) subcut DAILY 90 days 28.8 mL 1RF E11.9 - Type 2 diabetes mellitus without complications To insulin glargine (Lantus Solostar U-100 Insulin) 35 units (0.35 mL) subcut DAILY 90 days 31.5 mL 1RF E11.9 - Type 2 diabetes mellitus without complications Refilled blood sugar diagnostic (FreeStyle Lite Strips) USE TO TEST ONCE DAILY 100 strips 4RF E11.65 - Type 2 diabetes mellitus with hyperglycemia lancets (FreeStyle Lancets) Use 1 lancet once a day 100 ea 3RF E11.65 - Type 2 diabetes mellitus with hyperglycemia Coding Level of Care Code Est Pt Level 4 (91610) Diagnoses Type 2 diabetes mellitus with hyperglycemia, without long-term current use of insulin E11.65 Diabetes mellitus type: type 2 Diabetes mellitus fci insulin use: without ad terminal makeup operator use Diabetes mellitus complication status: with hyperglycemia Essential hypertension I10 Dyslipidemia E78.5 Gastroesophageal reflux disease, unspecified whether esophagitis present K21.9 Esophagitis presence: esophagitis presence not specified Additional Codes FREDDY-7 Assessment Billing - FREDDY-7 Assessment Tool: FREDDY-7 Assessment 33861 ([id number]) Time Spent (min) 23
[2023-12-21 13:47] VITALS: BP 136/80; BMI 33.1
== END 2023-12-21 14:03 | disposition home or self-care (01) ==
PROVIDERS: PCP Internal Medicine; Visit Provider Internal Medicine
DX: E11.65 Type 2 diabetes mellitus with hyperglycemia (principal); I10 Essential (primary) hypertension; E78.5 Hyperlipidemia, unspecified; K21.9 Gastro-esophageal reflux disease without esophagitis
CPT/HCPCS: 83036; 99214

== ENCOUNTER 2024-03-16 08:31 | Outpatient (REF) | payer OTHER, SELFPAY ==
--- NOTE | ~2024-03-16 | MM_ITS ---
EXAMINATION: MM SCREENING DIGITAL BREAST TOMOSYNTHESIS, BILATERAL CLINICAL INFORMATION: Screening. Asymptomatic. COMPARISON: Mammography: 03/11/2023, 02/26/2022, 02/20/2021, and dating back to 2014. TECHNIQUE: Digital breast tomosynthesis is performed in both the craniocaudal and mediolateral oblique views along with computer-aided detection (CAD). Synthesized 2D images are generated from the tomosynthesis. FINDINGS: There are scattered areas of fibroglandular density (ACR BI-RADS breast composition Category b). Stable parenchymal asymmetry upper outer left breast, unchanged from numerous exams. There are no suspicious masses, suspicious grouped calcifications, or areas of architectural distortion in either breast. The parenchymal pattern is stable from prior exams. MM/MM tomosynthesis screening BI IMPRESSION: No mammographic evidence of malignancy. No significant interval change. ASSESSMENT: BI-RADS BI-RADS 2 - Benign Findings RECOMMENDATION: Routine annual mammography screening. 1 year F/U This examination should not preclude the clinical evaluation of a suspicious palpable abnormality. This patient's information was entered into a reminder system with a target due date for their next mammogram.
== END 2024-03-16 08:32 | disposition home or self-care (01) ==
LOC: HO.MAMMO 08:31
PROVIDERS: PCP Internal Medicine; Visit Provider Internal Medicine
DX: Z12.31 Encounter for screening mammogram for malignant neoplasm of breast (principal)
CPT/HCPCS: 77063; 77067

== ENCOUNTER → 2024-03-16 10:00 | Outpatient (BNV) | payer OTHER, SELFPAY | PROVIDERS: PCP Internal Medicine; Visit Provider Radiology Diagnostic Radiology | DX: Z12.31 Encounter for screening mammogram for malignant neoplasm of breast (principal) | CPT/HCPCS: 77063; 77067 ==

== ENCOUNTER 2024-05-10 06:46 | Outpatient (REF) | payer OTHER, SELFPAY ==
[2024-05-10 08:22] LABS: Alanine Aminotransferase 40 U/L (0-31); Albumin Level 4.2 g/dL (3.5-5.0); Alkaline Phosphatase 68 U/L (39-117); Anion Gap 10 (12-20); Aspartate Amino Transferase 38 U/L (5-31); Bilirubin Total 0.3 mg/dL (0.0-1.0); Blood Urea Nitrogen 19 mg/dL (9-16); Calcium 9.8 mg/dL (8.4-10.2); Carbon Dioxide 25 mmol/L (22-29); Chloride 110 mmol/L (96-108); Cholesterol 168 mg/dL (<200); Estimated Glomerular Filt Rate > 60; Glucose Fasting 145 mg/dL (60-99); HDL Cholesterol 45 mg/dL (>40); LDL Cholesterol Calculated 95 mg/dL (<100); Potassium 4.2 mmol/L (3.3-5.1); Sodium 141 mmol/L (135-145); Total Protein 7.9 g/dL (6.5-8.0); Triglycerides 144 mg/dL (<150)
[2024-05-10 08:54] LABS: Creatinine Urine 61.72 mg/dL
== END 2024-05-10 06:47 | disposition home or self-care (01) ==
LOC: HO.LAB 06:46
PROVIDERS: PCP Internal Medicine; Visit Provider Internal Medicine
DX: E11.65 Type 2 diabetes mellitus with hyperglycemia (principal); E78.5 Hyperlipidemia, unspecified
CPT/HCPCS: 36415; 80053; 80061; 82043; 82570

== ENCOUNTER 2024-05-17 13:17 | Outpatient (AMB) | payer OTHER, SELFPAY ==
[2024-05-17 13:29] VITALS: BP 130/82; PULSE 58; O2SAT 97; BMI 32.9
--- NOTE | 2024-05-17 13:29 | MHC.PC.OV ---
Vital Signs 05/17/24 13:29 Height 5 ft 3 in Weight 186 lb BMI 32.9 BP 130/82 Blood Pressure Location Lt brachial Position Sitting Pulse 58 Pulse Source Pulse Oximeter Pulse Oximetry (%) 97 Oxygen Delivery Method Room Air Intake Visit Reasons: pe Intake Note: The patient is here today for a physical examination. Their current concern is left foot plantar pain attributed to flat feet over the past two weeks. Skiver Counter Required: No Accompanied by: Significant Other Allergies dulaglutide [Trulicity] Adverse Reaction (Intermediate, Verified 05/17/24 13:45) abdominal gas Ozempic Allergy (Intermediate, Uncoded 05/17/24 13:45) hives dogs Allergy (Mild, Uncoded 05/17/24 13:45) rash Medication List - Last Reconciled 05/17/24 by Bharati Veliz MD atorvastatin 20 mg PO BEDTIME 90 days blood sugar diagnostic (FreeStyle Lite Strips) USE TO TEST ONCE DAILY blood-glucose meter (FreeStyle Lite Meter kit) As directed cholecalciferol (vitamin D3) 25 mcg PO DAILY 90 days insulin glargine (Lantus Solostar U-100 Insulin) 35 units (0.35 mL) subcut DAILY 90 days lancets (FreeStyle Lancets) Use 1 lancet once a day lisinopril 10 mg PO DAILY 90 days metformin 1,000 mg PO BID 90 days omeprazole 20 mg PO DAILY 90 days pen needle, diabetic (BD Lynn 2nd Gen Pen Needle) USE 1 PEN NEEDLE ONCE A DAY pen needle, diabetic As directed pioglitazone 45 mg PO DAILY Tobacco use date assessed: 12/21/23 Fall risk assessment: No Falls in past year Last assessed Fall Risk: 05/17/24 Dental Screening Dental Screen Date: 12/21/23 HPI HPI Comments History of Present Illness Details This is a 69-year-old female with diabetes mellitus type 2 that comes accompanied by significant other for her physical exam. Mammogram done 2023 was normal. Has never had a colonoscopy but is willing to do Cologuard. Denies any chest pain or shortness on breath. DEXA scan will be ordered. Complains of left foot pain and I will order x-ray of the foot. Also complains of constipation with less than 3 bowel movements per week. A1c not on goal and I will increase insulin. LDL not on goal and I will increase statin. [facility] Medical History (Updated 05/17/24 @ 15:47 by Bharati Veliz MD) Essential hypertension Dyslipidemia Diabetes mellitus Closed fibular fracture GERD (gastroesophageal reflux disease) Surgical History History of back surgery Family History Father No problems noted. Mother Diabetes Son Diabetes Maternal Uncle Diabetes Maternal Aunt Diabetes Brother No problems noted. Brother No problems noted. Sister Substance use disorder Sister No problems noted. Son No problems noted. Son No problems noted. Daughter No problems noted. Daughter No problems noted. Social History Housing: House Alcohol intake: never Patient Tobacco Use Status: Never used Tobacco e-Cigarette/Vaping Use: Never Used Second Hand Smoke Exposure: No service: No Current occupational status: unemployed Cognitive needs: No Hearing needs: No Vision needs: No Questionnaire Thrive Questionnaire Date Thrive assessed: 12/21/23 FREDDY-7 AMB Questionnaire FREDDY-7 Date FREDDY - 7 assessed: 12/21/23 Source: Developed by Drs. Santo Sims, Yina Marina, Russell Culver and colleagues, with an educational noah from [employer]. Review of Systems Const All systems reviewed & are unremarkable except as noted in HPI and below Card Denies chest pain at rest, Denies chest pain with activity, Denies edema, Denies irregular heart rhythm, Denies claudication, Denies dyspnea, Denies dyspnea on exertion, Denies orthopnea, Denies paroxysmal nocturnal dyspnea and Denies slow heart rate Resp Denies cough, Denies dyspnea and Denies dyspnea on exertion GI Denies abdominal pain, Denies change in bowel habits, Reports constipation, Denies excessive flatus, Denies nausea and Denies vomiting Denies urinary incontinence, Denies urinary hesitancy and Denies urinary urgency Musc Denies abnormal gait, Denies atrophy, Denies deformity, Reports arthralgias and Denies limited range of motion Neuro Denies abnormal gait, Denies behavioral changes and Denies lack of coordination Psych Denies behavioral changes Physical exam (Primary Care) Vital Signs: Last Vital Signs Pulse 58 05/17/24 13:29 BP 130/82 05/17/24 13:29 Pulse Ox 97 05/17/24 13:29 Oxygen Delivery Method Room Air 05/17/24 13:29 BMI result Body Mass Index 32.9 BMI Assessment/Plan discussion: High BMI High, discussed plan: lifestyle, weight reduction, dietary and physical activity Tobacco/Smoking Status: Tobacco use Status Tobacco use date assessed 12/21/23 05/17/24 13:34 Patient Tobacco Use Status Never used Tobacco 05/17/24 13:34 e-Cigarette/Vaping Use Never Used 05/17/24 13:34 Thrive Assessment: Date of Thrive Assessment Date Thrive assessed 12/21/23 05/17/24 13:34 HENMT Head: Yes normal to inspection, Yes normocephalic and Yes atraumatic Ears: external ears normal Eyes General: appearance normal, both eyes and all related structures Eyelids: Yes eyelids normal Conjunctivae: conjunctivae normal Neck Neck: Yes normal visual inspection and Yes supple Resp Effort & Inspection: normal respiratory effort Auscultation: clear to auscultation bilaterally Cardio Jugular venous distension: no JVD Rate: regular rate Rhythm: regular rhythm Heart sounds: S1 normal heart sound present and S2 normal heart sound present GI Inspection: Yes normal to inspection Palpation (GI): Soft to palpation and nontender Auscultation: normal bowel sounds Skin General skin exam: no rashes or lesions noted Neuro General: no focal motor deficits Extrem General: Yes full ROM Psych Appearance: grossly normal Results AMB Hemoglobin A1c AMB Hemoglobin A1c 8.5 % Last Edit by NORY Dhaliwal on 05/17/24 13:53 Results Reviewed Results Reviewed: Laboratory Last Values Hgb A1c (Clinic) 8.5 % (4.0-6.0) H 05/17/24 13:29 Assessment and Plan Assessment & Plan (1) Physical exam: Code(s): Z00.00 - Encounter for general adult medical examination without abnormal findings Plan: Repeat in a year. (2) Diabetes mellitus: Code(s): E11.9 - Type 2 diabetes mellitus without complications Qualifiers: Diabetes mellitus type: type 2 Diabetes mellitus terminal makeup operator insulin use: without senior living use Diabetes mellitus complication status: with hyperglycemia Qualified Code(s): E11.65 - Type 2 diabetes mellitus with hyperglycemia Plan: Increase insulin from 35 units to 40 units. A1c goal is equal or less than 7%. (3) Left foot pain: Code(s): M79.672 - Pain in left foot Plan: X-ray ordered. (4) Chronic idiopathic constipation: Code(s): K59.04 - Chronic idiopathic constipation Plan: Start docusate as needed. Orders: Orders XR DEXA axial skeleton Today N95.9 - Unspecified menopausal and perimenopausal disorder AMB Hemoglobin A1c Today E11.65 - Type 2 diabetes mellitus with hyperglycemia XR foot LT min 3V Today M79.672 - Pain in left foot Referrals Cologuard Test Z12.11 - Encounter for screening for malignant neoplasm of colon, Z12.12 - Encounter for screening for malignant neoplasm of rectum Medications: New docusate calcium 240 mg PO BEDTIME 90 days PRN 90 caps 3RF constipation atorvastatin 40 mg PO BEDTIME 90 days 90 tabs 1RF Changed From insulin glargine (Lantus Solostar U-100 Insulin) 35 units (0.35 mL) subcut DAILY 90 days 31.5 mL 1RF E11.9 - Type 2 diabetes mellitus without complications To insulin glargine (Lantus Solostar U-100 Insulin) 40 units (0.4 mL) subcut DAILY 90 days 36 mL 1RF E11.9 - Type 2 diabetes mellitus without complications Discontinued atorvastatin Discontinued Reason: Patient Completed Course 20 mg PO BEDTIME 90 days 90 tabs 1RF Coding Level of Care Code Est Pt Level 3 (48370) Est Pt Prev Care >65y(88420) Diagnoses Physical exam Z00.00 Type 2 diabetes mellitus with hyperglycemia, without long-term current use of insulin E11.65 Diabetes mellitus type: type 2 Diabetes mellitus senior living insulin use: without terminal makeup operator use Diabetes mellitus complication status: with hyperglycemia Left foot pain M79.672 Chronic idiopathic constipation K59.04 Time Spent (min) 35
== END 2024-05-17 14:29 | disposition home or self-care (01) ==
PROVIDERS: PCP Internal Medicine; Visit Provider Internal Medicine
DX: Z00.00 Encounter for general adult medical examination without abnormal findings (principal); E11.65 Type 2 diabetes mellitus with hyperglycemia; M79.672 Pain in left foot; K59.04 Chronic idiopathic constipation
CPT/HCPCS: 83036; 99213; 99397

== ENCOUNTER 2024-05-17 14:48 | Outpatient (REF) | payer OTHER, SELFPAY ==
--- NOTE | ~2024-05-17 | XR_ITS ---
EXAMINATION: XR FOOT, LEFT CLINICAL INFORMATION: Pain in left foot. COMPARISON: June 25, 2022. TECHNIQUE: AP, lateral, and oblique views of the left foot. FINDINGS: Diffuse demineralization. Moderate degenerative changes in first metatarsophalangeal joint with joint space narrowing and hypertrophic change. Small plantar calcaneal spur. Moderate degenerative changes in the midfoot. Redemonstration of a thin curvilinear calcification along the expected course of the Achilles tendon insertion into the posterior calcaneus. XR/XR foot LT min 3V IMPRESSION: Moderate degenerative changes.
== END 2024-05-17 14:49 | disposition home or self-care (01) ==
LOC: HO.XRAY 14:48
PROVIDERS: PCP Internal Medicine; Visit Provider Internal Medicine
DX: M79.672 Pain in left foot (principal)
CPT/HCPCS: 73630

== ENCOUNTER 2024-06-09 08:29 | Outpatient (REF) | payer OTHER, SELFPAY ==
--- NOTE | ~2024-06-09 | MM_ITS ---
EXAMINATION: BONE DENSITOMETRY CLINICAL INDICATION: Menopause. COMPARISON: This is the patient's baseline examination. TECHNIQUE: Using a Videobot DXA System (software version: 13.1) manufactured by [employer], dual-energy x-ray absorptiometry was performed of the lumbar spine and left hip. The images are of good technical quality. Summary results are attached. FINDINGS: LEFT FEMUR, NECK: BMD 0.991 g/cm2, Z-score 0.9, T-score -0.3, normal. LEFT FEMUR, TOTAL: BMD 1.141 g/cm2, Z-score 2.0, T-score 1.1, normal. AP SPINE L1-L4: BMD 1.160 g/cm2, Z-score 0.9, T-score -0.2, normal. IDENTIFIED RISK FACTORS: Menopause. HISTORY OF FRACTURE: None listed. MEDICATIONS: Multivitamin, vitamin D. MM/XR DEXA axial skeleton IMPRESSION: 1. DIAGNOSIS: Normal bone density based on the lowest T-score value of -0.3 in the femoral neck applying World Health Organization criteria. 2. 10-YEAR FRACTURE RISK PREDICTION, FRAX: According to the guidelines, FRAX calculation should only be performed on patients in the osteopenia bone density category. Therefore, FRAX was not performed on this patient. 3. Treatment Recommendations: NOF guidelines recommend consideration for treatment in postmenopausal women and men age 50 and older presenting with the following: -A hip or vertebral (clinical or morphometric) fracture. -T-score less than or equal to -2.5 at the femoral neck or spine after appropriate evaluation to exclude secondary causes. -Low bone mass at the hip or spine and a 10-year fracture probability by FRAX of greater than or equal to 3% for hip fracture or greater than or equal to 20% for major osteoporotic fracture based on the [place] adapted WHO algorithm. 4. Other Recommendations: All treatment decisions require clinical judgment and consideration of individual patient factors, including patient preferences, comorbidities, previous drug use, risk factors not captured in the FRAX model (e.g. frailty, falls, vitamin D deficiency, increased bone turnover, interval significant decline in bone density) and possible under or overestimation of fracture risk by FRAX. FUTURE SCAN RECOMMENDATION: People with diagnosed cases of osteoporosis or at high risk for fracture should have regular bone mineral density tests. For patients eligible for Medicare, routine testing is allowed once every 2 years. The testing frequency can be increased to one year for patients who have rapidly progressing disease, those who are receiving or discontinuing medical therapy to restore bone mass, or have additional risk factors.
== END 2024-06-09 08:30 | disposition home or self-care (01) ==
LOC: HO.MAMMO 08:29
PROVIDERS: PCP Internal Medicine; Visit Provider Internal Medicine
DX: Z13.820 Encounter for screening for osteoporosis (principal); Z78.0 Asymptomatic menopausal state
CPT/HCPCS: 77080

== ENCOUNTER 2024-09-28 15:13 | Outpatient (AMB) | payer OTHER, SELFPAY ==
[2024-09-28 15:23] VITALS: BP 130/76; BMI 31.9
--- NOTE | 2024-09-28 15:23 | A.OFFPC_ITS ---
Vital Signs 09/28/24 15:23 Height 5 ft 3 in Weight 180 lb BMI 31.9 BP 130/76 Blood Pressure Location Lt brachial Position Sitting Intake Visit Reasons: 3mof\u Intake Note: Patient here for a 3 month follow up Shoe Cleaner Required: No Accompanied by: Self / Same As Patient Allergies dulaglutide [Trulicity] Adverse Reaction (Intermediate, Verified 09/28/24 15:47) abdominal gas Ozempic Allergy (Intermediate, Uncoded 09/28/24 15:47) hives dogs Allergy (Mild, Uncoded 09/28/24 15:47) rash Medication List - Last Reconciled 09/28/24 by Bharati Veliz MD atorvastatin 40 mg PO BEDTIME 90 days blood sugar diagnostic (FreeStyle Lite Strips) USE TO TEST ONCE DAILY blood-glucose meter (FreeStyle Lite Meter kit) As directed cholecalciferol (vitamin D3) 25 mcg PO DAILY 90 days docusate calcium 240 mg PO BEDTIME PRN 90 days insulin glargine (Lantus Solostar U-100 Insulin) 40 units (0.4 mL) subcut DAILY 90 days lancets (FreeStyle Lancets) Use 1 lancet once a day lisinopril 10 mg PO DAILY 90 days metformin 1,000 mg PO BID 90 days omeprazole 20 mg PO DAILY 90 days pen needle, diabetic (BD Lynn 2nd Gen Pen Needle) USE 1 PEN NEEDLE ONCE A DAY pen needle, diabetic As directed pioglitazone 45 mg PO DAILY Tobacco use date assessed: 12/21/23 Fall risk assessment: No Falls in past year Last assessed Fall Risk: 09/28/24 Dental Screening Dental Screen Date: 09/28/24 Did you have a dental visit in the last 12 months?: No Did you have a dental problem in the last 6 months where you did not have access to dental care?: No Was dental information given to patient?: Patient has dentist HPI HPI Comments History of Present Illness Details This is a 69-year-old female with diabetes mellitus type 2 on long-term current use of insulin, hypertension, hyperlipidemia, chronic constipation and GERD that comes today accompanied by significant other for follow-up on her conditions. A1c elevated and I will increase insulin. Blood pressure stable. Last LDL was close to goal and this will be repeated. Constipation stable with medications. GERD stable with PPIs. She denies any chest pain or shortness on breath. [facility] Medical History (Updated 05/17/24 @ 15:47 by Bharati Veliz MD) Essential hypertension Dyslipidemia Diabetes mellitus Closed fibular fracture GERD (gastroesophageal reflux disease) Surgical History History of back surgery Family History Father No problems noted. Mother Diabetes Son Diabetes Maternal Uncle Diabetes Maternal Aunt Diabetes Brother No problems noted. Brother No problems noted. Sister Substance use disorder Sister No problems noted. Son No problems noted. Son No problems noted. Daughter No problems noted. Daughter No problems noted. Social History Housing: House Alcohol intake: never Patient Tobacco Use Status: Never used Tobacco e-Cigarette/Vaping Use: Never Used Second Hand Smoke Exposure: No service: No Current occupational status: unemployed Cognitive needs: No Hearing needs: No Vision needs: No Questionnaire Thrive Questionnaire Date Thrive assessed: 12/21/23 FREDDY-7 AMB Questionnaire FREDDY-7 Date FREDDY - 7 assessed: 12/21/23 Source: Developed by Drs. Santo Sims, Yina Marina, Russell Culver and colleagues, with an educational noah from [employer]. Review of Systems Const All systems reviewed & are unremarkable except as noted in HPI and below Card Denies chest pain at rest, Denies chest pain with activity, Denies edema, Denies irregular heart rhythm, Denies claudication, Denies dyspnea, Denies dyspnea on exertion, Denies orthopnea, Denies paroxysmal nocturnal dyspnea and Denies slow heart rate Resp Denies cough, Denies dyspnea and Denies dyspnea on exertion GI Denies abdominal pain, Denies change in bowel habits, Denies excessive flatus, Denies nausea and Denies vomiting Physical exam (Primary Care) Vital Signs: Last Vital Signs BP 130/76 09/28/24 15:23 BMI result Body Mass Index 31.9 BMI Assessment/Plan discussion: High BMI High, discussed plan: lifestyle, weight reduction, dietary and physical activity Tobacco/Smoking Status: Tobacco use Status Tobacco use date assessed 12/21/23 09/28/24 15:24 Patient Tobacco Use Status Never used Tobacco 09/28/24 15:24 e-Cigarette/Vaping Use Never Used 09/28/24 15:24 Thrive Assessment: Date of Thrive Assessment Date Thrive assessed 12/21/23 09/28/24 15:24 Resp Effort & Inspection: normal respiratory effort Auscultation: clear to auscultation bilaterally Cardio Jugular venous distension: no JVD Rate: regular rate Rhythm: regular rhythm Heart sounds: S1 normal heart sound present and S2 normal heart sound present Extrem General: Yes full ROM Office Procedures Flu Questionnaire Does the patient have a severe egg allergy?: No Results AMB Hemoglobin A1c AMB Hemoglobin A1c 8.3 % Last Edit by NORY Dhaliwal on 09/28/24 15:3 4 Immunizations Fluarix Triv [id number] (PF) 45 mcg (15 mcg x 3)/0.5 mL IM syringe Performing Provider: Bharati Veliz MD [facility] Documented (not given) by: NORY Dhaliwal on 09/28/24 15:34 Reason Not Given: Patient Refused Results Reviewed Results Reviewed: Laboratory Last Values Hgb A1c (Clinic) 8.3 % (4.0-6.0) H 09/28/24 15:21 Coding Level of Care Code Est Pt Level 4 (30319) Complex EM visit Add On G2211 Diagnoses Type 2 diabetes mellitus with hyperglycemia, without long-term current use of insulin E11.65 Diabetes mellitus type: type 2 Diabetes mellitus penitentiary insulin use: without intermodal truck driver use Diabetes mellitus complication status: with hyperglycemia Essential hypertension I10 Dyslipidemia E78.5 Chronic idiopathic constipation K59.04 Gastroesophageal reflux disease, unspecified whether esophagitis present K21.9 Esophagitis presence: esophagitis presence not specified Time Spent (min) 23 Assessment & Plan Assessment & Plan (1) Diabetes mellitus: Code(s): E11.9 - Type 2 diabetes mellitus without complications Category: Medical Qualifiers: Diabetes mellitus type: type 2 Diabetes mellitus penitentiary insulin use: without intermodal truck driver use Diabetes mellitus complication status: with hyperglycemia Qualified Code(s): E11.65 - Type 2 diabetes mellitus with hyperglycemia Plan: Continue Actos and metformin. Increase insulin. A1c goal is equal or less than 7%. (2) Essential hypertension: Code(s): I10 - Essential (primary) hypertension Category: Medical Plan: Continue lisinopril. Blood pressure goal is equal or less than 130/80. (3) Dyslipidemia: Code(s): E78.5 - Hyperlipidemia, unspecified Category: Medical Plan: Continue statins. Repeat lipid panel. LDL goal is less than 70. (4) Chronic idiopathic constipation: Code(s): K59.04 - Chronic idiopathic constipation Category: Medical Plan: Continue docusate as needed for constipation. (5) GERD (gastroesophageal reflux disease): Code(s): K21.9 - Gastro-esophageal reflux disease without esophagitis Category: Medical Qualifiers: Esophagitis presence: esophagitis presence not specified Qualified Code(s): K21.9 - Gastro-esophageal reflux disease without esophagitis Plan: Continue PPIs. Orders: Orders AMB Hemoglobin A1c 09/28/24 E11.65 - Type 2 diabetes mellitus with hyperglyc emia Influenza [id number] Immunization 09/28/24 Z23 - Encounter for immunization Vitamin D 25-OH Total 4 Months E55.9 - Vitamin D deficiency, unspecified Lipid Panel 4 Months E78.5 - Hyperlipidemia, unspecified Complete Blood Count Auto Diff 4 Months D64.9 - Anemia, unspecified Vitamin B12 and Folate 4 Months E53.8 - Deficiency of other specified B group vitamins Comprehensive [place]. Panel Fast 4 Months E11.65 - Type 2 diabetes mellitus with hyperglycemia Microalbumin, Random (w Creat) 4 Months R80.9 - Proteinuria, unspecified IRON PROFILE 4 Months D64.9 - Anemia, unspecified Medications: Changed From insulin glargine (Lantus Solostar U-100 Insulin) 40 units (0.4 mL) subcut DAILY 90 days 36 mL 1RF E11.9 - Type 2 diabetes mellitus without complications To insulin glargine (Lantus Solostar U-100 Insulin) 42 units (0.42 mL) subcut DAILY 90 days 37.8 mL 1RF E11.9 - Type 2 diabetes mellitus without complications
== END 2024-09-28 15:59 | disposition home or self-care (01) ==
LOC: HO.HMCH 15:13
PROVIDERS: PCP Internal Medicine; Visit Provider Internal Medicine
DX: E11.65 Type 2 diabetes mellitus with hyperglycemia (principal); I10 Essential (primary) hypertension; E78.5 Hyperlipidemia, unspecified; K59.04 Chronic idiopathic constipation; K21.9 Gastro-esophageal reflux disease without esophagitis

== ENCOUNTER → 2024-09-28 15:13 | Outpatient (BNVA) | payer OTHER, SELFPAY | PROVIDERS: PCP Internal Medicine; Visit Provider Internal Medicine | DX: E11.65 Type 2 diabetes mellitus with hyperglycemia (principal); I10 Essential (primary) hypertension; E78.5 Hyperlipidemia, unspecified; K59.04 Chronic idiopathic constipation; K21.9 Gastro-esophageal reflux disease without esophagitis | CPT/HCPCS: 83036; 90471; 99212 ==

== ENCOUNTER 2025-01-29 08:06 | Outpatient (REF) | payer OTHER, SELFPAY ==
--- OUTSIDE RECORDS SUMMARY | 2025-01-29 08:12 | XMS_ITS | Clinical Summary ---
Author Organization [facility] Address [address] [place] [address] Care Team Providers Care Manager Photography Name Role Phone Unavailable Primary Care Provider Unavailabl e Source Comments PLEASE NOTE, if this patient is a minor, it may be UNLAWFUL to discuss sensitive information that is contained in these records (such as FAMILY PLANNING, MENTAL HEALTH or SUBSTANCE ABUSE) with the minor patient's parent or other person without the patient's specific authorization.[facility] Allergies No known active allergies Medications No known medications Active Problems No known active problems Social History Tobacco Use Types Packs/Day Years Used Date Smoking Tobacco: Never Smokeless Tobacco: Never Tobacco Cessation:Counseling Given: Not Answered Social Connections Answer Date Recorded Connectedness 0 08/11/2024 Financial Resource Strain Answer Date R ecorded Financial Resource Strain 0 2021 Stress Answer Date Recorded Stress 0 06/16/2022 Physical Activity Answer Date Recorded Physical Activity 0 06/16/2022 Food Insecurity Answer Date Recorded Food 0 08/17/2024 Transportation Needs Answer Date Record ed Transportation 0 06/16/2022 Housing Stability Answer Date Recorded Housing 0 06/16/2022 Safety and Environment Answer Date Camacho rded Safety 0 06/16/2022 Utilities Answer Date Recorded Utilities 0 06/16/2022 Employment Answer Date Recorded Stress 0 08/11/2024 Comments Unknown Sex and Gender Information Value Date Recorded Sex Assigned at Not on file Legal Sex Female 6:50 AM PDT Gender Identity Not on file Sexual Orientation Not on file Last Filed Vital Signs Vital Sign Reading Time Taken Comments Blood Pressure 143/75 01/27/2024 1:16 PM EST Pulse 68 01/27/2024 1:16 PM EST Temperature - - Respiratory Rate - - Oxygen Saturation - - Inhaled Oxygen Concentration - - Weight - - Height - - Body Mass Index - - Plan of Treatment Health Maintenance Due Date Last Done Comments Diabetes Screening 1957 Hepatitis C Screening 1957 Lipid Screening 1957 Medicare Annual Wellness Visit 1975 Imm-DTaP/Tdap/Td (1 - Tdap) 1976 Breast Cancer Screening (Mammogram) 1997 CT Colonography 2002 Colonoscopy 2002 Colorectal Cancer Screening 2002 FIT/gFOBT 2002 Fecal DNA 2002 Flexible Sigmoidoscopy 2002 Imm-Pneumococcal 65+ (1 of 1 - PCV) 2007 Imm-Zoster, Recombinant (1 of 2) 2007 Bone Density Screening 2022 Falls Prevention 2022 Eri-[id number] ( season) 2024 Imm-Influenza (#1) 2024 Alcohol and Drug Screen 11/22/2024 Depression Annual Screen 11/22/2024 Hypertension Screening (#1) 01/26/2025 Tobacco Screening 01/26/2025 01/27/2024 Dental BW 01/28/2025 01/27/2024, 05/23, 12/17/2022, Additional history exists Dental Examination 01/28/2025 01/27/2024, 0 06/16/2023, 12/17/2022, Additional history exists Dental Perio Charting 01/28/2025 01/27/2024 , 12/17/2022, 06/16/2022 Dental Prophy 01/28/2025 01/27/2024, 05/23, 12/17/2022, Additional history exists Dental FMX/Pano 01/28/2029 01/27/2024 Procedures Procedure Name Priority Date/Time Associated Diagnosis Comments COMP PERIODONTAL EVALUATION - NEW/EST PATIENT Routine 01/27/2024 1:40 PM EST Caries of enamel (incipient) INTRAORAL - COMP SERIES OF RADIOGRAPHIC IMAGES Routine 01/27/2024 1:40 PM EST Caries of enamel (incipient) Full PROPHYLAXIS - ADULT Routine 024 1:40 PM EST Caries of enamel (incipient) Full PERIODIC ORAL EVALUATION ESTABLISHED PATIENT Routine 01/27/2024 1:40 PM EST Caries of enamel (incipient) from Last 3 Months or Most Recently Relevant to Health Maintenance Insurance [facility]
[2025-01-29 08:23] LABS: MANUAL DIFF FLAG NO
[2025-01-29 08:51] LABS: Basophils Percent Auto 0.3 % (0-2); Eosinophils Absolute Auto 0.1 X10*3/uL (0.0-0.4); Eosinophils Percent Auto 2.4 % (0-4); Hematocrit 38.5 % (37.0-47.0); Hemoglobin 12.8 g/dl (12.0-16.0); Imm Gran Abs Auto 0.01 X10*3/uL (0.00-0.03); Imm Gran Pct Auto 0.2 % (0.0-0.4); Lymphocytes Absolute Auto 2.8 X10*3/uL (1.2-4.9); Lymphocytes Percent Auto 47.7 % (20-40); Mean Corpuscular HGB Conc 33.2 g/dl (31.0-35.0); Mean Corpuscular Volume 87.3 fL (80.0-98.0); Mean Platelet Volume 11.5 fL (9.4-12.3); Monocytes Absolute Auto 0.5 X10*3/uL (0.1-1.2); Monocytes Percent Auto 8.4 % (2-11); Neutrophils Absolute Auto 2.4 x10*3/uL (2.0-8.3); Platelet Count 244 X10*3/uL (160-400); Red Blood Count 4.41 X10*6/uL (4.20-5.50); Red Cell Distribution Width 13.1 % (11.0-16.0)
[2025-01-29 09:57] LABS: Alanine Aminotransferase 45 U/L (0-31); Albumin Level 4.3 g/dL (3.5-5.0); Alkaline Phosphatase 86 U/L (39-117); Anion Gap 12 (12-20); Aspartate Amino Transferase 45 U/L (5-31); Bilirubin Total 0.5 mg/dL (0.0-1.0); Blood Urea Nitrogen 13 mg/dL (9-16); Calcium 9.7 mg/dL (8.4-10.2); Carbon Dioxide 27 mmol/L (22-29); Chloride 110 mmol/L (96-108); Cholesterol 143 mg/dL (<200); Estimated Glomerular Filt Rate > 60; Glucose Fasting 90 mg/dL (60-99); HDL Cholesterol 43 mg/dL (>40); Iron 117 mcg/dL (30-160); LDL Cholesterol Calculated 77 mg/dL (<100); Percent Iron Saturation 40 % (15-50); Potassium 4.5 mmol/L (3.3-5.1); Sodium 144 mmol/L (135-145); Total Iron Binding Capacity 295 mcg/dL (228-428); Total Protein 8.6 g/dL (6.5-8.0); Triglycerides 116 mg/dL (<150); Unsaturated Iron Binding 178 ug/dL
[2025-01-29 10:01] LABS: Creatinine Urine 32.77 mg/dL; Microalbum/Creatinine Ratio Ur 27.4 ug/mg cr (<30)
[2025-01-29 10:04] LABS: Vitamin D 25-OH Total 72.4 ng/mL (>30)
[2025-01-29 10:16] LABS: Folate 16.8 ng/mL (> or = 4.0); Vitamin B12 916 pg/mL (200-900)
== END 2025-01-29 08:07 | disposition home or self-care (01) ==
LOC: HO.LAB 08:06
PROVIDERS: PCP Internal Medicine; Visit Provider Internal Medicine
DX: D64.9 Anemia, unspecified (principal); E55.9 Vitamin D deficiency, unspecified; E78.5 Hyperlipidemia, unspecified; R80.9 Proteinuria, unspecified; E53.8 Deficiency of other specified B group vitamins; E11.65 Type 2 diabetes mellitus with hyperglycemia
CPT/HCPCS: 36415; 80053; 80061; 82043; 82306; 82570; 82607; 82746; 83540; 85025

== ENCOUNTER 2025-03-14 13:40 | Outpatient (AMB) | payer OTHER, SELFPAY ==
--- NOTE | 2025-03-14 13:42 | MHC.PC.OV ---
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 Required: No Accompanied by: Friend Allergies dulaglutide [Trulicity] Adverse Reaction (Intermediate, Verified 03/14/25 14:09) abdominal gas Ozempic Allergy (Intermediate, Uncoded 03/14/25 14:09) hives dogs Allergy (Mild, Uncoded 03/14/25 14:09) rash Medication List - Last Reconciled 03/14/25 by Bharati Veliz MD atorvastatin 40 mg PO BEDTIME 90 days blood sugar diagnostic (FreeStyle Lite Strips) USE TO TEST ONCE DAILY blood-glucose meter (FreeStyle Lite Meter kit) As directed cholecalciferol (vitamin D3) 25 mcg PO DAILY 90 days docusate calcium 240 mg PO BEDTIME PRN 90 days insulin glargine (Lantus Solostar U-100 Insulin) 42 units (0.42 mL) subcut DAILY 90 days lancets (FreeStyle Lancets) Use 1 lancet once a day lisinopril 10 mg PO DAILY 90 days metformin 1,000 mg PO BID 90 days omeprazole 20 mg PO DAILY 90 days pen needle, diabetic As directed pen needle, diabetic (BD Lynn 2nd Gen Pen Needle) USE 1 PEN NEEDLE ONCE A DAY pioglitazone 45 mg PO DAILY Tobacco use date assessed: 03/14/25 Fall risk assessment: No Falls in past year Last assessed Fall Risk: 03/14/25 Dental Screening Dental Screen Date: 03/14/25 Did you have a dental visit in the last 12 months?: Yes Did you have a dental problem in the last 6 months where you did not have access to dental care?: No Was dental information given to patient?: Patient has dentist HPI HPI Comments History of Present Illness Details The patient is a 69-year-old female presenting with issues primarily related to hypertension management and diabetes control. She reports sustained high blood pressure necessitating adjustments in her Lisinopril regimen. Concurrently, issues of glycemic control were addressed with noted HbA1c levels at 8.2 and occasional high glucose readings, leading to a plan for increased Lantus dosage. She additionally presented with allergic dermatitis likely triggered by contact with unknown allergen and has been advised on adjustments to her personal care regime and potential web production assistant referrals. On statins for her hyperlipidemia and her LDL goal should be less than 70. GERD stable with PPIs. Constipation stable with docusate as needed. [facility] Medical History (Updated 03/14/25 @ 14:19 by Bharati Veliz MD) Essential hypertension Dyslipidemia Diabetes mellitus Closed fibular fracture GERD (gastroesophageal reflux disease) Surgical History History of back surgery Family History Father No problems noted. Mother Diabetes Son Diabetes Maternal Uncle Diabetes Maternal Aunt Diabetes Brother No problems noted. Brother No problems noted. Sister Substance use disorder Sister No problems noted. Son No problems noted. Son No problems noted. Daughter No problems noted. Daughter No problems noted. Social History Housing: House Alcohol intake: never Patient Tobacco Use Status: Never used Tobacco e-Cigarette/Vaping Use: Never Used Second Hand Smoke Exposure: No service: No Current occupational status: unemployed Cognitive needs: No Hearing needs: No Vision needs: No Questionnaire PHQ-9 Over the last 2 weeks, how often have you been bothered by any of the following problems? 1. Little interest or pleasure in doing things: not at all 2. Feeling down, depressed, or hopeless: not at all 3. Trouble falling or staying asleep, or sleeping too much: not at all 4. Feeling tired or having little energy: not at all 5. Poor appetite or overeating: not at all 6. Feeling bad about yourself - or that you are a failure or have let yourself or your family down: not at all 7. Trouble concentrating on things, such as reading the newspaper or watching television: not at all 8. Moving or speaking so slowly that other people could have noticed. Or the opposite - being so fidgety or restless that you have been moving around a lot more than usual: not at all 9. Thoughts that you would be better off or of hurting yourself in some way: not at all Total score: 0 Depression Screening Interpretation: Negative Depression Screening Done: Yes 66469 - PHQ-9 Billing: Yes Source: Developed by Drs. Santo Sims, Yina Marina, Russell Culver and colleagues, with an educational noah from [employer]. Thrive Questionnaire Date Thrive assessed: 03/14/25 I am a: Patient What is your living situation today?: I have a steady place to live Within the past 12 months, did the food you bought not last and you didn't have the money to get more?: Never true Within the past 12 months, did you worry whether your food would run out before you got money to buy more?: Never true Do you have trouble paying for medicines?: No Do you have trouble getting transportation to medical appointments?: No Do you have trouble paying your heating and electricity bill?: No Do you have trouble taking care of your child, family member or friend?: No Do you have trouble with day-to-day activities such as bathing, preparing meals, shopping, managing finances, etc.?: No Are you currently unemployed and looking for a job?: No Are you interested in more education?: No Please select the resources that you would like help with: None Currently or been in a relationship where the following occur: No concerns reported THRIVE Score: 0 AUDIT C Alcohol Use Questionnaire (AUDIT-C) 1. How often do you have a drink containing alcohol?: Never 3. How often do you have six or more drinks on one occasion?: Never Total Score: 0 FREDDY-7 AMB Questionnaire FREDDY-7 Date FREDDY - 7 assessed: 03/14/25 Feeling nervous, anxious, or on edge: 0 = Not at all Not being able to stop or control worryin = Not at all Worrying too much about different things: 0 = Not at all Trouble relaxin = Not at all Being so restless that it is hard to sit still: 0 = Not at all Becoming easily annoyed or irritable: 0 = Not at all Feeling afraid as if something awful might happen: 0 = Not at all Total FREDDY-7 score (0-4 normal; 5-9 mild; 10-14 moderate; 15-21 severe): 0 Source: Developed by Yina Mahmood Kurt Kroenke and colleagues, with an educational noah from [employer]. FREDDY-7 Assessment Billing FREDDY-7 Assessment Tool: FREDDY-7 Assessment 29975 Review of Systems Const All systems reviewed & are unremarkable except as noted in HPI and below Card Denies chest pain at rest, Denies chest pain with activity, Denies edema, Denies irregular heart rhythm, Denies claudication, Denies dyspnea, Denies dyspnea on exertion, Denies orthopnea, Denies paroxysmal nocturnal dyspnea and Denies slow heart rate Resp Denies cough, Denies dyspnea and Denies dyspnea on exertion GI Denies abdominal pain, Denies change in bowel habits, Denies excessive flatus, Denies nausea and Denies vomiting Denies urinary incontinence, Denies urinary hesitancy and Denies urinary urgency Skin/Breast Reports rash Neuro Denies behavioral changes and Denies lack of coordination Psych Denies behavioral changes Physical exam (Primary Care) Vital Signs: Last Vital Signs Temp 97.3 F 03/14/25 13:45 Pulse 66 03/14/25 13:45 BP 150/80 H 03/14/25 13:45 Pulse Ox 98 03/14/25 13:45 Oxygen Delivery Method Room Air 03/14/25 13:45 BMI result Body Mass Index 30.3 BMI Assessment/Plan discussion: High BMI High, discussed plan: lifestyle, weight reduction, dietary and physical activity Tobacco/Smoking Status: Tobacco use Status Tobacco use date assessed 03/14/25 03/14/25 13:52 Patient Tobacco Use Status Never used Tobacco 03/14/25 13:42 e-Cigarette/Vaping Use Never Used 03/14/25 13:42 PHQ-9: PHQ-9 Score PHQ-9: Total score 0 03/14/25 14:12 Depression Screening Interpretation: Negative Thrive Assessment: Date of Thrive Assessment Date Thrive assessed 03/14/25 03/14/25 13:52 Currently or been in a relationship where the following occur: No concerns reported Resp Effort & Inspection: normal respiratory effort Auscultation: clear to auscultation bilaterally Cardio Jugular venous distension: no JVD Rate: regular rate Rhythm: regular rhythm Heart sounds: S1 normal heart sound present and S2 normal heart sound present Extrem General: Yes full ROM Results AMB Hemoglobin A1c AMB Hemoglobin A1c 8.2 % Last Edit by CASSI Bocanegra on 03/14/25 13:55 Results Reviewed Results Reviewed: Laboratory Last Values Hgb A1c (Clinic) 8.2 % (4.0-6.0) H 03/14/25 13:52 Coding Level of Care Code Est Pt Level 4 (91000) Complex EM visit Add On G2211 Diagnoses Allergic reaction T78.40XA Chronic idiopathic constipation K59.04 Type 2 diabetes mellitus with hyperglycemia, without long-term current use of insulin E11.65 Diabetes mellitus type: type 2 Diabetes mellitus terminal gauger insulin use: without terminal gauger use Diabetes mellitus complication status: with hyperglycemia Essential hypertension I10 Dyslipidemia E78.5 Gastroesophageal reflux disease, unspecified whether esophagitis present K21.9 Esophagitis presence: esophagitis presence not specified Additional Codes FREDDY-7 Assessment Billing - FREDDY-7 Assessment Tool: FREDDY-7 Assessment 90971 ([id number]) PHQ-9 - 58770 - PHQ-9 Billing: Yes ([id number]) Time Spent (min) 23 Assessment & Plan Assessment & Plan (1) Allergic reaction: Code(s): T78.40XA - Allergy, unspecified, initial encounter Category: Medical (2) Chronic idiopathic constipation: Code(s): K59.04 - Chronic idiopathic constipation Category: Medical (3) Diabetes mellitus: Code(s): E11.9 - Type 2 diabetes mellitus without complications Category: Medical Qualifiers: Diabetes mellitus type: type 2 Diabetes mellitus detention insulin use: without terminal gauger use Diabetes mellitus complication status: with hyperglycemia Qualified Code(s): E11.65 - Type 2 diabetes mellitus with hyperglycemia (4) Essential hypertension: Code(s): I10 - Essential (primary) hypertension Category: Medical (5) Dyslipidemia: Code(s): E78.5 - Hyperlipidemia, unspecified Category: Medical (6) GERD (gastroesophageal reflux disease): Code(s): K21.9 - Gastro-esophageal reflux disease without esophagitis Category: Medical Qualifiers: Esophagitis presence: esophagitis presence not specified Qualified Code(s): K21.9 - Gastro-esophageal reflux disease without esophagitis Plan I increased Lisinopril to 20 mg to better manage hypertension. For diabetes control, Lantus insulin was adjusted from 42 to 45 units. I addressed dermatitis by altering current treatments and planning a referral to an web production assistant. I advised managing menopausal symptoms conservatively due to hormone therapy risks. Vitamin D supplementation was reduced due to hypervitaminosis, and consistent monitoring of blood glucose with dietary adjustments was encouraged. Patient was informed and verbally consented to the use of an ambient scribe for clinic note documentation during this visit. During our discussion, I explained adjusted routines for hypertension and diabetes management, emphasizing the benefits of increased medication dosages. Regarding diabetes, I highlighted the associated risks of elevated glucose levels and how slight adjustments in her insulin regimen might correct this. I also discussed the implications of her current dermatitis reactions and made recommendations on web production assistant consultations. We covered the challenges of menopausal symptom management without hormone therapy, offering alternatives to address comfort. I communicated the importance of regular lab monitoring and adjustments in supplementation, ensuring her understanding of preventative strategies and precautionary measures during treatment transitions. Orders: Orders Lipid Panel 4 Months E78.5 - Hyperlipidemia, unspecified Microalbumin, Random (w Creat) 4 Months R80.9 - Proteinuria, unspecified Vitamin D 25-OH Total 4 Months E55.9 - Vitamin D deficiency, unspecified Vitamin B12 and Folate 4 Months E53.8 - Deficiency of other specified B group vitamins AMB Hemoglobin A1c Today E11.65 - Type 2 diabetes mellitus with hyperglycemia Comprehensive [place]. Panel Fast 4 Months E11.65 - Type 2 diabetes mellitus with hyperglycemia Referrals Allergy & Immunology Referral T78.40XA - Allergy, unspecified, initial encounter Medications: New lisinopril 20 mg PO DAILY 90 tabs 1RF 90 days hydrocortisone 1% (Anti-Itch (hydrocortisone)) 1 appl topical BID PRN 28.4 grams 1RF skin irritation 2 weeks gabapentin 100 mg PO BEDTIME 90 caps 0RF 90 days Changed From insulin glargine (Lantus Solostar U-100 Insulin) 42 units (0.42 mL) subcut DAILY 90 days 37.8 mL 1RF E11.9 - Type 2 diabetes mellitus without complications To insulin glargine (Lantus Solostar U-100 Insulin) 45 units (0.45 mL) subcut DAILY 40.5 mL 1RF 90 days E11.9 - Type 2 diabetes mellitus without complications Refilled lancets (FreeStyle Lancets) Use 1 lancet once a day 100 ea 3RF E11.65 - Type 2 diabetes mellitus with hyperglycemia metformin 1,000 mg PO BID 180 tabs 2RF 90 days omeprazole 20 mg PO DAILY 90 caps 3RF 90 days K21.9 - Gastro-esophageal reflux disease without esophagitis atorvastatin 40 mg PO BEDTIME 90 tabs 1RF 90 days pioglitazone 45 mg PO DAILY 30 tabs 6RF Discontinued lisinopril Discontinued Reason: Patient Completed Course 10 mg PO DAILY 90 days 90 tabs 1RF I10 - Essential (primary) hypertension Patient Instructions: - Take Lisinopril 20 mg daily for blood pressure management. - Increase Lantus to 45 units for better blood sugar control. - Discontinue current facial creams temporarily; consult with party supply specialist. - Avoid dietary restrictions that limit nutritional balance for diabetes control. - Consider monitoring heat exposure to reduce menopausal discomfort. - Take Vitamin D less frequently as advised. - Schedule follow-up for allergy assessment. - Monitor blood glucose regularly and maintain log. - Contact care provider if symptoms or side effects worsen.
[2025-03-14 13:45] VITALS: BP 150/80; PULSE 66; TEMP 36.3; O2SAT 98; BMI 30.3
--- OUTSIDE RECORDS SUMMARY | 2025-03-14 16:20 | XMS_ITS | Clinical Summary ---
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 Name Role Phone Unavailable Primary Care Provider [...] Hepatitis C Screening 1957 Lipid Screening 1957 Tobacco Screening 1957 Medicare Annual Wellness Visit 1975 Imm-DTaP/Tdap/Td (1 - Tdap) 1976 Breast Cancer Screening (Mammogram) 1997 CT Colonography 2002 Colonoscopy 2002 Colorectal Cancer Screening 2002 FIT/gFOBT 2002 Fecal DNA 2002 Flexible Sigmoidoscopy 2002 Imm-Pneumococcal 65+ (1 of 1 - PCV) 2007 Imm-Zoster, Recombinant (1 of 2) 2007 Bone Density Screening 2022 Falls Prevention 2022 [id number] ( - season) 2024 Imm-Influenza (#1) 2024 Alcohol and Drug Screen 11/22/2024 Depression Annual Screen 11/22/2024 Hypertension Screening (#1) 01/26/2025 Dental BW 01/28/2025 01/27/2024, 05/23, 12/17/2022, Additional [...] Most Recently Relevant to Health Maintenance Insurance [facility]
== END 2025-03-14 14:22 | disposition home or self-care (01) ==
LOC: HO.HMCH 13:40
PROVIDERS: PCP Internal Medicine; Visit Provider Internal Medicine
DX: T78.40XA Allergy, unspecified, initial encounter (principal); K59.04 Chronic idiopathic constipation; E11.65 Type 2 diabetes mellitus with hyperglycemia; I10 Essential (primary) hypertension; E78.5 Hyperlipidemia, unspecified; K21.9 Gastro-esophageal reflux disease without esophagitis

== ENCOUNTER → 2025-03-14 13:40 | Outpatient (BNVA) | payer OTHER, SELFPAY | PROVIDERS: PCP Internal Medicine; Visit Provider Internal Medicine | DX: I10 Essential (primary) hypertension (principal); E11.9 Type 2 diabetes mellitus without complications; K21.9 Gastro-esophageal reflux disease without esophagitis; K59.00 Constipation, unspecified; K59.04 Chronic idiopathic constipation; E11.65 Type 2 diabetes mellitus with hyperglycemia; E78.5 Hyperlipidemia, unspecified; Z91.09 Other allergy status, other than to drugs and biological substances; Z79.899 Other long term (current) drug therapy | CPT/HCPCS: 83036; 96127; 99212 ==

== ENCOUNTER 2025-04-19 09:37 | Outpatient (REF) | payer OTHER, SELFPAY ==
--- OUTSIDE RECORDS SUMMARY | 2025-04-19 09:56 | XMS_ITS | Clinical Summary ---
Author Organization [facility] Address [address] [place] [address] Care Team Providers Care Financial Sales Manager Name Role Phone Unavailable Primary Care [...] Bone Density Screening 2022 Falls Prevention 2022 [id number] ( - season) 2024 Imm-Influenza (#1) 2024 [...] Most Recently Relevant to Health Maintenance Insurance [facility] - [facility]ENTAL
== END 2025-04-19 09:38 | disposition home or self-care (01) ==
LOC: HO.MAMMO 09:37
PROVIDERS: PCP Internal Medicine; Visit Provider Internal Medicine
DX: Z12.31 Encounter for screening mammogram for malignant neoplasm of breast (principal)
CPT/HCPCS: 77063; 77067

== ENCOUNTER → 2025-04-19 10:30 | Outpatient (BNV) | payer OTHER, SELFPAY | PROVIDERS: PCP Internal Medicine; Visit Provider Internal Medicine | DX: Z12.31 Encounter for screening mammogram for malignant neoplasm of breast (principal) | CPT/HCPCS: 77063; 77067 ==

== ENCOUNTER 2025-06-28 06:38 | Outpatient (REF) | payer OTHER, SELFPAY ==
[2025-06-28 08:32] LABS: Alanine Aminotransferase 50 U/L (0-31); Albumin Level 4.3 g/dL (3.5-5.0); Alkaline Phosphatase 73 U/L (39-117); Anion Gap 10 (12-20); Aspartate Amino Transferase 49 U/L (5-31); Blood Urea Nitrogen 14 mg/dL (9-16); Calcium 9.2 mg/dL (8.4-10.2); Carbon Dioxide 26 mmol/L (22-29); Chloride 108 mmol/L (96-108); Cholesterol 131 mg/dL (<200); Estimated Glomerular Filt Rate > 60; HDL Cholesterol 39 mg/dL (>40); Potassium 4.2 mmol/L (3.3-5.1); Sodium 140 mmol/L (135-145); Total Protein 7.7 g/dL (6.5-8.0); Triglycerides 134 mg/dL (<150)
[2025-06-28 08:48] LABS: Microalbum/Creatinine Ratio Ur 24.7 ug/mg cr (<30)
[2025-06-28 09:05] LABS: Folate 15.2 ng/mL (> or = 4.0); Vitamin B12 845 pg/mL (200-900)
== END 2025-06-28 06:39 | disposition home or self-care (01) ==
LOC: HO.LAB 06:38
PROVIDERS: PCP Internal Medicine; Visit Provider Internal Medicine
DX: E11.65 Type 2 diabetes mellitus with hyperglycemia (principal); E53.8 Deficiency of other specified B group vitamins; E78.5 Hyperlipidemia, unspecified; R80.9 Proteinuria, unspecified; E55.9 Vitamin D deficiency, unspecified
CPT/HCPCS: 36415; 80053; 80061; 82043; 82306; 82570; 82607; 82746

== ENCOUNTER 2025-07-24 13:33 | Outpatient (AMB) | payer OTHER, SELFPAY ==
--- NOTE | 2025-07-24 13:39 | MHC.PC.OV ---
Vital Signs 07/24/25 13:40 Height 5 ft 3 in Weight 179 lb BMI 31.7 BP 150/56 H Blood Pressure Location Lt brachial Respiration 18 Pulse 59 Pulse Source Pulse Oximeter Temp 97.1 F Temp Source Temporal Artery Scan Pulse Oximetry (%) 98 Oxygen Delivery Method Room Air Intake Visit Reasons: 4mth f/u- A1C needed. 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: No Accompanied by: Spouse Allergies dulaglutide (Trulicity) Adverse Reaction (Intermediate, Verified 07/24/25 14:27) abdominal gas Ozempic Allergy (Intermediate, Uncoded 07/24/25 14:27) hives dogs Allergy (Mild, Uncoded 07/24/25 14:27) rash Medication List - Last Reconciled 07/24/25 by Bharati Veliz MD atorvastatin 40 mg PO BEDTIME 90 days blood sugar diagnostic (FreeStyle Lite Strips) USE TO TEST ONCE DAILY blood-glucose meter (FreeStyle Lite Meter kit) As directed cholecalciferol (vitamin D3) 25 mcg PO DAILY 90 days docusate calcium 240 mg PO BEDTIME PRN 90 days gabapentin 100 mg PO BEDTIME 90 days hydrocortisone 1% (Anti-Itch (hydrocortisone)) 1 appl topical BID PRN 2 weeks insulin glargine (Lantus Solostar U-100 Insulin) 45 units (0.45 mL) subcut DAILY 90 days lancets (FreeStyle Lancets) Use 1 lancet once a day lisinopril 20 mg PO DAILY 90 days metformin 1,000 mg PO BID 90 days omeprazole 20 mg PO DAILY 90 days pen needle, diabetic As directed pen needle, diabetic (BD Lynn 2nd Gen Pen Needle) USE 1 PEN NEEDLE ONCE A DAY pioglitazone 45 mg PO DAILY Tobacco use date assessed: 07/24/25 Fall risk assessment: No Falls in past year Last assessed Fall Risk: 07/24/25 Dental Screening Dental Screen Date: 07/24/25 Did you have a dental visit in the last 12 months?: No Did you have a dental problem in the last 6 months where you did not have access to dental care?: No Was dental information given to patient?: Patient has dentist HPI HPI Comments History of Present Illness Details \this is a 70-year-old female with diabetes mellitus type 2, hypertension, dyslipidemia, GERD and constipation that comes today for follow-up on her conditions. Blood pressure elevated and will be recheck in 3 weeks by nurse navigator. Blood pressure goal is equal or less than 130/80. LDL within goal being less than 70. GERD stable with PPIs. A1c not on goal and I will increase insulin and refer her to endocrinology. GERD stable with PPIs. Constipation well controlled with medications as needed. She has lumbar degenerative disc disease and chronic left foot pain and will benefit from a shower chair and a cane. [facility] Medical History (Updated 07/24/25 @ 14:38 by Bharati Veliz MD) Essential hypertension Dyslipidemia Diabetes mellitus Closed fibular fracture GERD (gastroesophageal reflux disease) Surgical History History of back surgery Family History Father No problems noted. Mother Diabetes Son Diabetes Maternal Uncle Diabetes Maternal Aunt Diabetes Brother No problems noted. Brother No problems noted. Sister Substance use disorder Sister No problems noted. Son No problems noted. Son No problems noted. Daughter No problems noted. Daughter No problems noted. Social History Housing: House Alcohol intake: never Patient Tobacco Use Status: Never used Tobacco e-Cigarette/Vaping Use: Never Used Second Hand Smoke Exposure: No service: No Current occupational status: unemployed Cognitive needs: No Hearing needs: No Vision needs: No Questionnaire PHQ-9 Over the last 2 weeks, how often have you been bothered by any of the following problems? 1. Little interest or pleasure in doing things: not at all 2. Feeling down, depressed, or hopeless: not at all 3. Trouble falling or staying asleep, or sleeping too much: not at all 4. Feeling tired or having little energy: not at all 5. Poor appetite or overeating: not at all 6. Feeling bad about yourself - or that you are a failure or have let yourself or your family down: not at all 7. Trouble concentrating on things, such as reading the newspaper or watching television: not at all 8. Moving or speaking so slowly that other people could have noticed. Or the opposite - being so fidgety or restless that you have been moving around a lot more than usual: not at all 9. Thoughts that you would be better off or of hurting yourself in some way: not at all Total score: 0 Depression Screening Interpretation: Negative Depression Screening Done: Yes 23578 - PHQ-9 Billing: Yes Source: Developed by Drs. Santo Sims, Yina Marina, Russell Culver and colleagues, with an educational noah from [employer]. Thrive Questionnaire Date Thrive assessed: 07/24/25 I am a: Patient What is your living situation today?: I have a steady place to live Within the past 12 months, did the food you bought not last and you didn't have the money to get more?: Never true Within the past 12 months, did you worry whether your food would run out before you got money to buy more?: Never true Do you have trouble paying for medicines?: No Do you have trouble getting transportation to medical appointments?: No Do you have trouble paying your heating and electricity bill?: No Do you have trouble taking care of your child, family member or friend?: No Do you have trouble with day-to-day activities such as bathing, preparing meals, shopping, managing finances, etc.?: No Are you currently unemployed and looking for a job?: No Are you interested in more education?: No Please select the resources that you would like help with: None Currently or been in a relationship where the following occur: No concerns reported THRIVE Score: 0 AUDIT C Alcohol Use Questionnaire (AUDIT-C) 1. How often do you have a drink containing alcohol?: Never 3. How often do you have six or more drinks on one occasion?: Never Total Score: 0 FREDDY-7 AMB Questionnaire FREDDY-7 Date FREDDY - 7 assessed: 07/24/25 Feeling nervous, anxious, or on edge: 0 = Not at all Not being able to stop or control worryin = Not at all Worrying too much about different things: 0 = Not at all Trouble relaxin = Not at all Being so restless that it is hard to sit still: 0 = Not at all Becoming easily annoyed or irritable: 0 = Not at all Feeling afraid as if something awful might happen: 0 = Not at all Total FREDDY-7 score (0-4 normal; 5-9 mild; 10-14 moderate; 15-21 severe): 0 Source: Developed by Drs. Santo Sims, Yina Marina, Russell Culver and colleagues, with an educational noah from [employer]. FREDDY-7 Assessment Billing FREDDY-7 Assessment Tool: FREDDY-7 Assessment 08284 Review of Systems Const All systems reviewed & are unremarkable except as noted in HPI and below Card Denies chest pain at rest, Denies chest pain with activity, Denies edema, Denies irregular heart rhythm, Denies claudication, Denies dyspnea, Denies dyspnea on exertion, Denies orthopnea, Denies paroxysmal nocturnal dyspnea and Denies slow heart rate Resp Denies cough, Denies dyspnea and Denies dyspnea on exertion GI Denies abdominal pain, Denies change in bowel habits, Denies excessive flatus, Denies nausea and Denies vomiting Physical exam (Primary Care) Vital Signs: Last Vital Signs Temp 97.1 F 07/24/25 13:40 Pulse 59 07/24/25 13:40 Resp 18 07/24/25 13:40 BP 150/56 H 07/24/25 13:40 Pulse Ox 98 07/24/25 13:40 Oxygen Delivery Method Room Air 07/24/25 13:40 BMI result Body Mass Index 31.7 Tobacco/Smoking Status: Tobacco use Status Tobacco use date assessed 07/24/25 07/24/25 13:48 Patient Tobacco Use Status Never used Tobacco 07/24/25 13:40 e-Cigarette/Vaping Use Never Used 07/24/25 13:40 PHQ-9: PHQ-9 Score PHQ-9: Total score 0 07/24/25 14:28 Depression Screening Interpretation: Negative Thrive Assessment: Date of Thrive Assessment Date Thrive assessed 07/24/25 07/24/25 13:48 Currently or been in a relationship where the following occur: No concerns reported Resp Effort & Inspection: normal respiratory effort Auscultation: clear to auscultation bilaterally Cardio Jugular venous distension: no JVD Rate: regular rate Rhythm: regular rhythm Heart sounds: S1 normal heart sound present and S2 normal heart sound present Extrem General: Yes full ROM Results AMB Hemoglobin A1c AMB Hemoglobin A1c 8.4 % Last Edit by Noelle Nuno CMA on 07/24/25 14:00 Results Reviewed Results Reviewed: Laboratory Last Values Hgb A1c (Clinic) 8.4 % (4.0-6.0) H 07/24/25 13:59 Coding Level of Care Code Est Pt Level 4 (37756) Complex EM visit Add On G2211 Diagnoses Type 2 diabetes mellitus with hyperglycemia, without long-term current use of insulin E11.65 Diabetes mellitus type: type 2 Diabetes mellitus care home insulin use: without care home use Diabetes mellitus complication status: with hyperglycemia Essential hypertension I10 Dyslipidemia E78.5 Gastroesophageal reflux disease, unspecified whether esophagitis present K21.9 Esophagitis presence: esophagitis presence not specified Chronic idiopathic constipation K59.04 Additional Codes FREDDY-7 Assessment Billing - FREDDY-7 Assessment Tool: FREDDY-7 Assessment 81376 ([id number]) PHQ-9 - 52930 - PHQ-9 Billing: Yes ([id number]) Time Spent (min) 22 Assessment & Plan Assessment & Plan (1) Diabetes mellitus: Code(s): E11.9 - Type 2 diabetes mellitus without complications Category: Medical Qualifiers: Diabetes mellitus type: type 2 Diabetes mellitus care home insulin use: without terminal make up operator use Diabetes mellitus complication status: with hyperglycemia Qualified Code(s): E11.65 - Type 2 diabetes mellitus with hyperglycemia (2) Essential hypertension: Code(s): I10 - Essential (primary) hypertension Category: Medical (3) Dyslipidemia: Code(s): E78.5 - Hyperlipidemia, unspecified Category: Medical (4) GERD (gastroesophageal reflux disease): Code(s): K21.9 - Gastro-esophageal reflux disease without esophagitis Category: Medical Qualifiers: Esophagitis presence: esophagitis presence not specified Qualified Code(s): K21.9 - Gastro-esophageal reflux disease without esophagitis (5) Chronic idiopathic constipation: Code(s): K59.04 - Chronic idiopathic constipation Category: Medical Plan Blood pressure goal is equal or less than 130/80. LDL goal is less than 70. A1c goal is less than 7%. Referred to endocrinology for diabetes. Continue current meds. Start high-fiber diet for constipation. Orders: Orders AMB Hemoglobin A1c Today Z13.9 - Encounter for screening, unspecified Referrals Endocrinology Referral E11.65 - Type 2 diabetes mellitus with hyperglycemia Medications: New [shower chair] As directed 1 ea 0RF M79.672 - Pain in left foot cane As directed 1 ea 0RF M51.369 - Other intervertebral disc degeneration, lumbar region without mention of lumbar back pain or lower extremity pain Changed From insulin glargine (Lantus Solostar U-100 Insulin) 45 units (0.45 mL) subcut DAILY 90 days 40.5 mL 1RF E11.9 - Type 2 diabetes mellitus without complications To insulin glargine (Lantus Solostar U-100 Insulin) 48 units (0.48 mL) subcut DAILY 43.2 mL 1RF 90 days E11.9 - Type 2 diabetes mellitus without complications Refilled blood-glucose meter (FreeStyle Lite Meter kit) As directed 1 ea 0RF E11.65 - Type 2 diabetes mellitus with hyperglycemia blood sugar diagnostic (FreeStyle Lite Strips) USE TO TEST ONCE DAILY 100 strips 4RF E11.65 - Type 2 diabetes mellitus with hyperglycemia lancets (FreeStyle Lancets) Use 1 lancet once a day 100 ea 3RF E11.65 - Type 2 diabetes mellitus with hyperglycemia
[2025-07-24 13:40] VITALS: BP 150/56; PULSE 59; RESP 18; TEMP 36.2; O2SAT 98; BMI 31.7
--- OUTSIDE RECORDS SUMMARY | 2025-07-24 14:50 | XMS_ITS | Clinical Summary ---
Author Organization [facility] Address [address] [place] [address] Care Team Providers Care [place] Operator Name Role Phone Unavailable Primary Care Provider [...] Fecal DNA 2002 Flexible Sigmoidoscopy 2002 Imm-Pneumococcal 50+ (1 of 1 - PCV) 2007 Imm-Zoster, Recombinant (1 of 2) 2007 Bone Density Screening 2022 Falls Prevention 2022 [id number] ( - season) 2024 Alcohol and Drug Screen 11/22/2024 Depression Annual Screen 11/22/2024 Hypertension Screening (#1) 01/26/2025 Dental BW 01/28/2025 01/27/2024, 05/23, 12/17/2022, Additional history exists Dental Examination 01/28/2025 01/27/2024, 0 06/16/2023, 12/17/2022, Additional history exists Dental Perio Charting 01/28/2025 01/27/2024 , 12/17/2022, 06/16/2022 Dental Prophy 01/28/2025 01/27/2024, 05/23, 12/17/2022, Additional history exists Imm-Influenza (#1) 2025 Dental FMX/Pano 01/28/2029 01/27/2024 Procedures Procedure Name [...] Most Recently Relevant to Health Maintenance Insurance [facility]
== END 2025-07-24 14:45 | disposition home or self-care (01) ==
LOC: HO.HMCH 13:33
PROVIDERS: PCP Internal Medicine; Visit Provider Internal Medicine
DX: E11.65 Type 2 diabetes mellitus with hyperglycemia (principal); I10 Essential (primary) hypertension; E78.5 Hyperlipidemia, unspecified; K21.9 Gastro-esophageal reflux disease without esophagitis; K59.04 Chronic idiopathic constipation; Z13.9 Encounter for screening, unspecified

== ENCOUNTER → 2025-07-24 13:33 | Outpatient (BNVA) | payer OTHER, SELFPAY | PROVIDERS: PCP Internal Medicine; Visit Provider Internal Medicine | DX: E11.65 Type 2 diabetes mellitus with hyperglycemia (principal); I10 Essential (primary) hypertension; E78.5 Hyperlipidemia, unspecified; K21.9 Gastro-esophageal reflux disease without esophagitis; K59.00 Constipation, unspecified; K59.04 Chronic idiopathic constipation | CPT/HCPCS: 83036; 96127; 99212 ==

== ENCOUNTER 2025-08-01 11:35 | Outpatient (AMB) | payer OTHER, SELFPAY ==
--- NOTE | 2025-08-01 11:42 | A.OFFVIS_ITS ---
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 Most recent HbA1c: 8.4%, 07/04/2025 Random Glucose: 254 mg/dL Office Messenger Required: No Accompanied by: Self / Same As Patient Allergies dulaglutide (Trulicity) Adverse Reaction (Intermediate, Verified 08/01/25 11:55) abdominal gas Ozempic Allergy (Intermediate, Uncoded 08/01/25 11:55) hives dogs Allergy (Mild, Uncoded 08/01/25 11:55) rash Medication List - Last Reconciled 08/01/25 by Ele Matthew MD atorvastatin 40 mg PO BEDTIME 90 days blood sugar diagnostic (FreeStyle Lite Strips) USE TO TEST ONCE DAILY blood-glucose meter (FreeStyle Lite Meter kit) As directed cane As directed cholecalciferol (vitamin D3) 25 mcg PO DAILY 90 days docusate calcium 240 mg PO BEDTIME PRN 90 days empagliflozin (Jardiance) 10 mg PO DAILY gabapentin 100 mg PO BEDTIME 90 days hydrocortisone 1% (Anti-Itch (hydrocortisone)) 1 appl topical BID PRN 2 weeks insulin glargine (Lantus Solostar U-100 Insulin) 40 units (0.4 mL) subcut DAILY 90 days lancets (FreeStyle Lancets) Use 1 lancet once a day lisinopril 20 mg PO DAILY 90 days metformin 1,000 mg PO BID 90 days omeprazole 20 mg PO DAILY 90 days pen needle, diabetic As directed pen needle, diabetic (BD Lynn 2nd Gen Pen Needle) USE 1 PEN NEEDLE ONCE A DAY pioglitazone 45 mg PO DAILY [shower chair As directed] HPI Comments Details: The patient has a history of diabetes since over 20 years ago. She is currently on Lantus insulin, taking 48 units at night, and Metformin 1000 mg twice daily. 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 Her morning sugar levels are typically 76 mg/dL, but can rise to 124 mg/dL after eating. She reports episodes of low blood sugar, particularly when she does not eat enough, with readings as low as 64 mg/dL. These episodes have occurred 2 or 3 times in the last month, mostly in the mornings. The patient has experienced weight fluctu ations and struggles to maintain a consistent exercise routine. She has a history of an allergic reaction to Ozempic, which caused a rash. Her hemoglobin A1c is currently 8.4%, and she reports occasional high blood sugar levels up to 200 mg/dL when eating more than usual. [facility] Medical History Essential hypertension Dyslipidemia Diabetes mellitus Closed fibular fracture GERD (gastroesophageal reflux disease) Surgical History History of back surgery Family History (Updated 08/01/25 @ 11:59 by NORY Waddell) Father No problems noted. Mother Diabetes Son Diabetes Maternal Uncle Diabetes Maternal Aunt Diabetes Brother No problems noted. Brother No problems noted. Sister Substance use disorder Diabetes Sister Diabetes Son Diabetes Son No problems noted. Daughter No problems noted. Daughter No problems noted. Social History Housing: House Alcohol intake: never Patient Tobacco Use Status: Never used Tobacco e-Cigarette/Vaping Use: Never Used Second Hand Smoke Exposure: No service: No Current occupational status: unemployed Cognitive needs: No Hearing needs: No Vision needs: No Review of Systems Const Details: - Positive for low blood sugar episodes - Positive for fluctuating weight - Negative for smoking and current alcohol use Physical Exam Exam Exam: General: Alert oriented x3, NAD Eyes: No diplopia, PERRLA ENT: Thyroid nonpalpable, no nodules Extremities: No edema, normal sensation to monofilament exam Vital Signs: Last Vital Signs Pulse 86 08/01/25 11:51 BP 136/70 08/01/25 11:51 Pulse Ox 96 08/01/25 11:51 Oxygen Delivery Method Room Air 08/01/25 11:51 BMI result Body Mass Index 31.2 Office Procedures AMB Patient Education/Training AMB Patient Education/Training Documentation: CGM Teaching Password: [id number] Instructed patient sensors water proof you can shower, or swim do not submerge sensor in water for over 30 minutes Is sensor falls off cannot put back in you need to replace sensor, customer service number given to patient for sensor replacement Sensor placed on the right upper arm. Patient left visit with sensor in warmup. Reviewed how to interpret trend arrows Discussed lag time between finger stick and sensor data.? Instructed patient the importance of having blood glucometer for backup testing if needed Reviewed delay of CGM from fingersticks Reminded Pt that if symptoms do not match sensor still needs to check fingersticks. Instrucciones para el paciente: CGM proporciona informaci?n sobre el control de la glucosa en kurtis a lo may del d?a, incluidas la hiperglucemia y la hipoglucemia. Contin?e controlando la glucosa en kurtis seg?n las instrucciones. Siga las pautas de nutrici?n proporcionadas. Informe cualquier molestia de inmediato al proveedor de atenci?n m?dica. Mantente sheila hidratado. Puede ba?arse, ducharse, nadar y hacer ejercicio mientras usa el sensor de glucosa. No sumerja el sensor de glucosa en agua amara m?s de 30 minutos. Retire el sensor para abhi resonancia magn?cuate o abhi tomograf?a computarizada. Evite la m?quina de ahsan X en los aeropuertos: retire el sensor o solicite la varita?? Results Reviewed Results Reviewed: Laboratory Last Values Glucose (Clinic) 254 mg/dL (60-115) H 08/01/25 11:54 There is not available meter logs or CGM data to interpret Assessment & Plan Assessment & Plan (1) Diabetes mellitus: Code(s): E11.9 - Type 2 diabetes mellitus without complications Category: Medical Qualifiers: Diabetes mellitus type: type 2 Diabetes mellitus buttermaker insulin use: without buttermaker use Diabetes mellitus complication status: with hyperglycemia Qualified Code(s): E11.65 - Type 2 diabetes mellitus with hyperglycemia Plan - Poorly controlled diabetes with episodes of hypoglycemia especially in the morning. - and a hemoglobin A1c of 8.4%. I would think that given her age and comorbidities an A1c goal of 7-8% range will be appropriate - History of allergic reaction to Ozempic Recommendations - Adjust Lantus insulin dosage from 48 units to 38 units nightly - recommend starting Jardiance 10 mg daily, could be increased to 25 mg if tolerated - advised dietary modifications and increased physical activity - Monitor blood sugar levels more frequently: 4 times a day - Follow-up with a well logger for foot care due to diabetes - Re-evaluate kidney function and protein levels regularly Orders: Orders AMB Patient Education/Training Session Today E11.65 - Type 2 diabetes mellitus with hyperglycemia Referrals Diabetes Education Referral E11.65 - Type 2 diabetes mellitus with hyperglycemia Medications: New blood-glucose sensor (FreeStyle Jayshree 3 Plus Sensor device) For continuous measurement of blood glucose 2 ea 1RF empagliflozin (Jardiance) 10 mg PO DAILY 30 tabs 0RF Changed From insulin glargine (Lantus Solostar U-100 Insulin) 48 units (0.48 mL) subcut DAILY 90 days 43.2 mL 1RF E11.9 - Type 2 diabetes mellitus without complications To insulin glargine (Lantus Solostar U-100 Insulin) 40 units (0.4 mL) subcut DAILY 36 mL 1RF 90 days E11.9 - Type 2 diabetes mellitus without complications Coding Level of Care Code New Pt Level 4 (22019) Diagnoses Type 2 diabetes mellitus with hyperglycemia, without long-term current use of insulin E11.65 Diabetes mellitus type: type 2 Diabetes mellitus alf insulin use: without alf use Diabetes mellitus complication status: with hyperglycemia
[2025-08-01 11:51] VITALS: BP 136/70; PULSE 86; O2SAT 96; BMI 31.2
[2025-08-01 12:03] LABS: Glucose, Whole Blood 254 mg/dL (60-115)
--- OUTSIDE RECORDS SUMMARY | 2025-08-01 14:46 | XMS_ITS | Clinical Summary ---
Author Organization [facility] Address [address] [place] [address] Care Team Providers Care Director Digital Sales Name Role Phone Unavailable Primary Care Provider [...] Bone Density Screening 2022 Falls Prevention 2022 Alcohol and Drug Screen 11/22/2024 Depression Annual Screen 11/22/2024 Hypertension Screening (#1) 01/26/2025 Dental BW 01/28/2025 01/27/2024, 05/23, 12/17/2022, Additional history exists Dental Examination 01/28/2025 01/27/2024, 0 06/16/2023, 12/17/2022, Additional history exists Dental Perio Charting 01/28/2025 01/27/2024 , 12/17/2022, 06/16/2022 Dental Prophy 01/28/2025 01/27/2024, 05/23, 12/17/2022, Additional history exists [id number] ( season) 2025 Imm-Influenza (#1) 2025 Dental FMX/Pano 01/28/2029 01/27/2024 [...] Most Recently Relevant to Health Maintenance Insurance [facility] - [facility]
== END 2025-08-01 13:45 | disposition home or self-care (01) ==
LOC: HO.ENCR 11:35
PROVIDERS: PCP Internal Medicine; Visit Provider Student in an Organized Health Care Education/Training Program
DX: E11.65 Type 2 diabetes mellitus with hyperglycemia (principal)
CPT/HCPCS: 99204

== ENCOUNTER → 2025-08-01 11:35 | Outpatient (BNVA) | payer OTHER, SELFPAY | PROVIDERS: PCP Internal Medicine; Visit Provider Student in an Organized Health Care Education/Training Program | DX: E11.65 Type 2 diabetes mellitus with hyperglycemia (principal); Z79.4 Long term (current) use of insulin; Z79.84 Long term (current) use of oral hypoglycemic drugs | CPT/HCPCS: 82947; 99202 ==

== ENCOUNTER 2025-09-06 12:07 | Outpatient (AMB) | payer OTHER, SELFPAY ==
--- NOTE | 2025-09-06 13:11 | MHC.AMDMED ---
Intake Intake Visit Reasons: T2DM Firer Portable Boiler Required: Yes Firer Portable Boiler Language: Taxicab Starter Name: Sreekanth [facility] [place] Accompanied by: Spouse Allergies dulaglutide (Trulicity) Adverse Reaction (Intermediate, Verified 08/01/25 11:55) abdominal gas Ozempic Allergy (Intermediate, Uncoded 08/01/25 11:55) hives dogs Allergy (Mild, Uncoded 08/01/25 11:55) rash HPI Comprehensive Diabetes Asmnt Most Recent Diabetes Results: Microalb/Creat Ratio, (<30) 24.7 ug/mg cr 06/28/25 Cholesterol, (<200) 131 mg/dL 06/28/25 HDL Cholesterol, (>40) 39 mg/dL L 06/28/25 Triglycerides, (<150) 134 mg/dL 06/28/25 Creatinine, (0.5-1.4) 0.68 mg/dL 06/28/25 BUN, (9-16) 14 mg/dL 06/28/25 Sodium, (135-145) 140 mmol/L 06/28/25 Potassium, (3.3-5.1) 4.2 mmol/L 06/28/25 Chloride, (96-108) 108 mmol/L 06/28/25 Carbon Dioxide, (22-29) 26 mmol/L 06/28/25 Calcium, (8.4-10.2) 9.2 mg/dL 06/28/25 AST, (5-31) 49 U/L H 06/28/25 ALT, (0-31) 50 U/L H 06/28/25 Total Protein, (6.5-8.0) 7.7 g/dL 06/28/25 Albumin, (3.5-5.0) 4.3 g/dL 06/28/25 [facility] Medical History Essential hypertension Dyslipidemia Diabetes mellitus Closed fibular fracture GERD (gastroesophageal reflux disease) Surgical History History of back surgery Family History (Updated 08/01/25 @ 11:59 by NORY Waddell) Father No problems noted. Mother Diabetes Son Diabetes Maternal Uncle Diabetes Maternal Aunt Diabetes Brother No problems noted. Brother No problems noted. Sister Substance use disorder Diabetes Sister Diabetes Son Diabetes Son No problems noted. Daughter No problems noted. Daughter No problems noted. 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 The patient met all learning objectives and was able to verbalize understanding and provide teach back of education topics discussed . The patient was provided with the opportunity to ask questions and all questions were answered. Patient Assessment Assess patient education level/literacy/barriers, patient's last A1c on 07/24/2025 8.4%. The patient has a history of diabetes over 20 years ago. On Lantus 48 units at night Prescribed Metformin 1000 mg twice daily. Patient reports she only takes once a day 1000 mg. She stated during visit she has her that she has been told by online doctors and other people she knows that metformin causes problems with muscles and tendons in the legs She has been seen once by Dr. Celestin, on 08/01/2025. At that visit Dr. Celestin placed Jayshree 3+ sample sensor. At visit today patient reports that she is not interested in wearing glucose sensor, she is happy to only use her glucometer Patient questions/concerns What is Diabetes? Pathophysiology How the body produces and uses insulin Identify type of DM Risk factors Signs of Diabetes Brief overview of Diabetes Management Monitoring blood sugar Following a meal plan Regular exercise Maintaining a healthy weight Taking medication as needed Members of the care team (PCP, RN, MA, RD, CDE, dyeing machine tender) Blood glucose monitoring When/how often to test Target blood sugar ranges Patient has 4 days worth of sensor data, patient does experience multiple episodes of hypoglycemia in the 4 days wearing the sensor. Reviewed with patient how to treat hypoglycemia with rule of 15s Hypoglycemia or blood glucose under 70 use the rule of 15's: If you have your blood glucose meter test your blood glucose, if you do not have your meter still follow below instruction: Keep quick-sugar foods with you at all times.? Take 15 grams of fast acting carbohydrates. Examples are 4 ounces of fruit juice or regular soda pop, 8 ounces fat-free milk, 1 tablespoon of table sugar, honey or corn syrup, jam, one miniature box of raisins, 7-8 gumdrops or Life Savers candy, 4 glucose tablets, and glucose gel.? Retest blood glucose in 15 minutes, if blood glucose is still under 80,repeat rule of 15's. If blood glucose is under 50, take 30 grams of fast acting carbohydrates If you are having hypoglycemia, or insulin reaction, more that a few times a week, call MD or tube bending machine operator F/U BG check Encourage patient if she is not going to wear glucose sensor that she test glucose 3 times daily Introduction to Nutrition Importance of healthy diet in managing DM Diet is personalized to individual preference Review patient?s regular diet/food preferences Who prepares meals/does food shopping/ Dining out?/ Barriers? How diet effects glucose Eating 3 balanced meals a day with small, healthy snacks between meals Review food groups Carbohydrates: What is a carbohydrate/Which food/food groups are considered carbohydrates Effect of carbohydrates on blood glucose Portion sizes Reading food labels Basic carb counting (if applicable per nursing assessment) Plate method Meal planning Recommendations: Follow plate method, consistent carbs and read nutritional labels. Smart Goal: Treat hypoglycemia with rule of 15s Educational Materials: The patient was provided with the following written educational materials: Planning Healthy Meals Handout Patient Response to instructions: Comprehension of Instructions: Fair Readiness to make changes: Contemplation How confident they feel about making changes: Positive Portions of this note were created using voice recognition software, please excuse any words or phrases that may have been misinterpreted. Patient Instructions: Incluir actividad diaria regular. ADA recomienda 30 minutos de ejercicio 5 d?as a la semana. P?rdida de peso, hable con el PCP o el cardi?logo antes de comenzar un nuevo plan. Mida el nivel de az?car en la kurtis seg?n las indicaciones; Ayuno y comida m?s darien de 2hpp. Observe las tendencias en los resultados. Utilice los resultados y eval?e c?mo los alimentos, la actividad f?sima y los medicamentos afectan los resultados de az?car en la kurtis. Lleve el gluc?metro o CGM a la pr?xima visita. Conocer los medicamentos para la diabetes, burks acci?n, los efectos secundarios, la eficacia, la toxicidad, la dosis prescrita, el momento y la frecuencia de administraci?n apropiados, el efecto de las dosis olvidadas y retrasadas y las instrucciones de almacenamiento, viaje y seguridad. T?cnicas de resoluci?n de problemas para el seguimiento de episodios de hipo/hiperglucemia y tratamientos. Reducir los comportamientos de reducci?n de riesgos, dejar de fumar, ex?menes regulares de ojos, pies y dentales. Coding Level of Care Code Est Pt Level 1 (63021) Diagnoses Type 2 diabetes mellitus with hyperglycemia, without long-term current use of insulin E11.65 Diabetes mellitus type: type 2 Diabetes mellitus penitentiary insulin use: without penitentiary use Diabetes mellitus complication status: with hyperglycemia
--- OUTSIDE RECORDS SUMMARY | 2025-09-06 15:19 | XMS_ITS | Clinical Summary ---
Author Organization [facility] Address [address] [place] [address] Care Team Providers Care Floor Covering Installer Name Role Phone Unavailable Primary Care Provider [...] 01/28/2025 01/27/2024, 05/23, 12/17/2022, Additional history exists [id number] ( season) 2025 Imm-Influenza (#1) 2025 Dental [...] Most Recently Relevant to Health Maintenance Insurance [facility]
== END 2025-09-06 13:20 | disposition home or self-care (01) ==
LOC: HO.ENCR 12:07
PROVIDERS: PCP Internal Medicine; Visit Provider Registered Nurse Diabetes Educator
DX: E11.65 Type 2 diabetes mellitus with hyperglycemia (principal)

== ENCOUNTER → 2025-09-06 12:07 | Outpatient (BNVA) | payer OTHER, SELFPAY | PROVIDERS: PCP Internal Medicine; Visit Provider Registered Nurse Diabetes Educator | DX: E11.65 Type 2 diabetes mellitus with hyperglycemia (principal) | CPT/HCPCS: 99211 ==

== ENCOUNTER 2025-10-30 12:04 | Outpatient (AMB) | payer OTHER, SELFPAY ==
[2025-10-30 12:34] VITALS: BP 126/78; PULSE 74; O2SAT 96; BMI 32.0
--- NOTE | 2025-10-30 12:34 | MHC.OFFVIS ---
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 Cream Truck Driver Required: Yes Ice Cream Truck Driver Language: Polisher And Buffer Services: Ice Cream Truck Driver Offered & Declined (DR Celestin Speak Fluent Turkish) Accompanied by: Significant Other Allergies dulaglutide (Trulicity) Adverse Reaction (Intermediate, Verified 10/30/25 12:46) abdominal gas Ozempic Allergy (Intermediate, Uncoded 10/30/25 12:46) hives dogs Allergy (Mild, Uncoded 10/30/25 12:46) rash Medication List - Last Reconciled 10/30/25 by Ele Matthew MD atorvastatin 40 mg PO BEDTIME 90 days blood sugar diagnostic (FreeStyle Lite Strips) USE TO TEST ONCE DAILY blood-glucose meter (FreeStyle Lite Meter kit) As directed blood-glucose sensor (FreeStyle Jayshree 3 Plus Sensor device) For continuous measurement of blood glucose cane As directed cholecalciferol (vitamin D3) 25 mcg PO DAILY 90 days docusate calcium 240 mg PO BEDTIME PRN 90 days empagliflozin (Jardiance) 25 mg PO DAILY gabapentin 100 mg PO BEDTIME 90 days hydrocortisone 1% (Anti-Itch (hydrocortisone)) 1 appl topical BID PRN 2 weeks insulin glargine (Lantus Solostar U-100 Insulin) 32 units (0.32 mL) subcut DAILY 90 days lancets (FreeStyle Lancets) Use 1 lancet once a day lisinopril 20 mg PO DAILY 90 days metformin 1,000 mg PO BID 90 days omeprazole 20 mg PO DAILY 90 days pen needle, diabetic As directed pen needle, diabetic USE 1 PEN NEEDLE ONCE A DAY pioglitazone 45 mg PO DAILY [shower chair As directed] HPI Comments Details: 70 yo female with PMH of HTN, Hyperlipidemia, GERD, T2DM, seen in the office for evaluation of T2DM. The patient has a history of diabetes since over 20 years ago. She is currently on Lantus insulin, taking 48 units at night, and Metformin 1000 mg twice daily. She measures her blood sugar once a day in the mental telepathist, despite recommendations to check it three times daily. Her morning sugar levels are typically 76 mg/dL, but can rise to 124 mg/dL after eating. She reports episodes of low blood sugar, particularly when she does not eat enough, with readings as low as 64 mg/dL. These episodes have occurred 2 or 3 times in the last month, mostly in the mornings. The patient has experienced weight fluctuations and struggles to maintain a consistent exercise routine. She has a history of an allergic reaction to Ozempic, which caused a rash. Her hemoglobin A1c is currently 8.4%, and she reports occasional high blood sugar levels up to 200 mg/dL when eating more than usual. Eye visit: June 2025, no DR Foot Dr.: No Physical exam: General: Well appearing. NAD. Neck/Thyroid: Thyroid not palpable, no nodules. CV: RRR, no murmur. No edema. Resp:Lungs clear to auscultation bilaterally Abdomen: Soft, nontender. nondistended Extremities/Neuro: No weakness or tremor of outstretched hands Interval history: Reports that her BG is better controlled She reports that her BG only rises with food transgressions. Using Lantus 38 units nightly and Metformin 1000mg BID, Pioglitazone 45mg/day and Jardiance 10 mg daily. Reports having lows in the AM Laboratory Tests 06/28/25 06/28/25 10/30/25 06:55 07:00 12:37 Creatinine 0.68 Estimated GFR > 60 Glucose (Clinic) 105 Hgb A1c (Clinic) AST 49 H ALT 50 H Alkaline Phosphatase 73 Triglycerides 134 Cholesterol 131 LDL Cholesterol, Calc 66 HDL Cholesterol 39 L 25-OH Vitamin D Total 57.7 Microalb/Creat Ratio 24.7 10/30/25 12:39 Creatinine Estimated GFR Glucose (Clinic) Hgb A1c (Clinic) 7.1 H AST ALT Alkaline Phosphatase Triglycerides Cholesterol LDL Cholesterol, Calc HDL Cholesterol 25-OH Vitamin D Total Microalb/Creat Ratio CGM data: Interpretation: overall well controlled, with AM episodes of hypoglycemia. [facility] Medical History Essential hypertension Dyslipidemia Diabetes mellitus Closed fibular fracture GERD (gastroesophageal reflux disease) Surgical History History of back surgery Family History (Updated 08/01/25 @ 11:59 by NORY Waddell) Father No problems noted. Mother Diabetes Son Diabetes Maternal Uncle Diabetes Maternal Aunt Diabetes Brother No problems noted. Brother No problems noted. Sister Substance use disorder Diabetes Sister Diabetes Son Diabetes Son No problems noted. Daughter No problems noted. Daughter No problems noted. Social History Housing: House Alcohol intake: never Patient Tobacco Use Status: Never used Tobacco e-Cigarette/Vaping Use: Never Used Second Hand Smoke Exposure: No service: No Current occupational status: unemployed Cognitive needs: No Hearing needs: No Vision needs: No Physical Exam Vital Signs: Last Vital Signs Pulse 74 10/30/25 12:34 BP 126/78 10/30/25 12:34 Pulse Ox 96 10/30/25 12:34 Oxygen Delivery Method Room Air 10/30/25 12:34 BMI result Body Mass Index 32.0 Office Procedures Glucose Monitoring Details Details: See HPI 37867 - Glucose Monitoring, continuous Procedure code (CPT) selection complete Results AMB Hemoglobin A1c AMB Hemoglobin A1c 7.1 % Last Edit by NORY Waddell on 10/30/25 12:46 Results Reviewed Results Reviewed: Laboratory Last Values Glucose (Clinic) 105 mg/dL (60-115) 10/30/25 12:37 There is not available meter logs or CGM data to interpret Assessment & Plan Assessment & Plan (1) Diabetes mellitus: Code(s): E11.9 - Type 2 diabetes mellitus without complications Category: Medical Qualifiers: Diabetes mellitus type: type 2 Diabetes mellitus mcc insulin use: without termite helper use Diabetes mellitus complication status: with hyperglycemia Qualified Code(s): E11.65 - Type 2 diabetes mellitus with hyperglycemia Plan Better controlled diabetes with episodes of hypoglycemia especially in the morning. Hemoglobin A1c 7.1%, previously 8.4%, indicating significant improvement in her A1c. I would think that given her age and comorbidities an A1c goal of 7-8% range will be appropriate History of allergic reaction to Ozempic Fib-4 score 1.93, per guidelines: < 2.0, Low risk for advanced fibrosis, Routine follow-up; repeat testing in 1?2 years. Recommendations - Adjust Lantus insulin dosage from 38 units to 32 units nightly - Increase Jardiance to 25 mg daily - Contunue Atorvastatin 40mg daily - advised dietary modifications and increased physical activity - Monitor blood sugar levels more frequently: 4 times a day - Follow-up with a stitch welder for foot care due to diabetes - Re-evaluate kidney function and albuminuria, lipid panel yearly - Retest Fib-4 score in 1 year Orders: Orders AMB Hemoglobin A1c Today - Type 2 diabetes mellitus with hyperglycemia AMB Glucose Monitoring Today - Type 2 diabetes mellitus with hyperglycemia Medications: New empagliflozin (Jardiance) 25 mg PO DAILY 30 tabs 3RF - Type 2 diabetes mellitus with hyperglycemia Changed From insulin glargine (Lantus Solostar U-100 Insulin) 40 units (0.4 mL) subcut DAILY 90 days 36 mL 1RF E11. - Type 2 diabetes mellitus without complications To insulin glargine (Lantus Solostar U-100 Insulin) 32 units (0.32 mL) subcut DAILY 20 mL 3RF 90 days E11.9 - Type 2 diabetes mellitus without complications Discontinued empagliflozin (Jardiance) Discontinued Reason: Doctor's Order 10 mg PO DAILY 30 tabs 3RF - Type 2 diabetes mellitus with hyperglycemia Patient Instructions: Reduzca Lantus a 32 unidades en la noche Monitor niveles de azucar 4x/brandy Incremente Jardiance a 25 mg/brandy Continue las otras medicinas karen previamente prescritas Coding Level of Care Code Est Pt Level 4 (95645) Complex visit Add On G2211 Diagnoses Type 2 diabetes mellitus with hyperglycemia, without long-term current use of insulin Diabetes mellitus type: type 2 Diabetes mellitus termite helper insulin use: without mcc use Diabetes mellitus complication status: with hyperglycemia CPT Codes Details - CPT: 58194 - Glucose Monitoring, continuous ([id number])
[2025-10-30 12:41] LABS: Glucose, Whole Blood 105 mg/dL (60-115)
== END 2025-10-30 13:15 | disposition home or self-care (01) ==
LOC: HO.ENCR 12:05
PROVIDERS: PCP Internal Medicine; Visit Provider Student in an Organized Health Care Education/Training Program
DX: E11.65 Type 2 diabetes mellitus with hyperglycemia (principal)
CPT/HCPCS: 99214; G2211

== ENCOUNTER → 2025-10-30 12:04 | Outpatient (BNVA) | payer OTHER, SELFPAY | PROVIDERS: PCP Internal Medicine; Visit Provider Student in an Organized Health Care Education/Training Program | DX: E11.65 Type 2 diabetes mellitus with hyperglycemia (principal); Z79.4 Long term (current) use of insulin; Z79.899 Other long term (current) drug therapy | CPT/HCPCS: 82947; 83036; 95250; 99212 ==